=== PATIENT | female | born 1950 ===

== ENCOUNTER 2016-12-06 17:59 | Emergency (ER) | payer MEDICARE, OTHER ==
[2016-12-06 18:00] VITALS: BMI 33.6
[2016-12-06 18:28] VITALS: BP 113/66; PULSE 110; RESP 22; TEMP 98; O2SAT 96
--- NOTE | 2016-12-06 18:59 | ED PDOC ---
Arrival/HPI - General Chief Complaint: Lower Extremity Problem/Injury Time Seen by Provider: 12/06/16 18:42 Historian: Patient - History of Present Illness Narrative History of Present Illness (Text): 12/06/16 18:48 66 year old female presents to the emergency department with bilateral lower extremity swelling that she first noticed this morning. She reports foot pain when she walks. Denies chest pain or shortness of breath. Time/Duration: 24 hours Symptom Onset: Gradual Symptom Course: Unchanged Modifying Factors (Text): None Associated Symptoms (Text): None Past Medical History - Provider Review Nursing Documentation Reviewed: Yes - Past History Past History: Unable to Obtain - Infectious Disease Hx of Infectious Diseases: None - Tetanus Immunization Tetanus Immunization: Unknown - Reproductive Menopause: Yes - Cardiac Hx Cardiac Arrhythmia: No Hx Congestive Heart Failure: No Hx Hypertension: Yes Hx Internal Defibrillator: No Hx Mitral Valve Prolapse: No Hx Pacemaker: No Hx Peripheral Edema: No - Pulmonary Hx Asthma: No Hx Chronic Obstructive Pulmonary Disease (COPD): No Hx Emphysema: No - Neurological HX Cerebrovascular Accident: No Hx Dementia: No Hx Seizures: No - HEENT Hx HEENT Disorder: No - Renal Hx Renal Disorder: No - Endocrine/Metabolic Hx Diabetes Mellitus Type 2: Yes Hx Hyperthyroidism: No Hx Hypothyroidism: No - Hematological/Oncological Hx Anemia: No Hx Cancer: No - Integumentary Hx Dermatological Disorder: No - Musculoskeletal/Rheumatological Hx Falls: No - Gastrointestinal Hx Diverticulitis: Yes - Genitourinary/Gynecological Hx Sexually Transmitted Diseases: No - Psychiatric Hx Depression: Yes Hx Emotional Abuse: No Hx Physical Abuse: No Hx Substance Use: No - Past Surgical History Past Surgical History: No Previous - Surgical History Hx Cardiac Catheterization: No Hx Coronary Stent: No Hx Gastric Bypass Surgery: No - Suicidal Assessment Feels Threatened In Home Enviroment: No Family/Social History - Physician Review Nursing Documentation Reviewed: Yes Family/Social History: Unknown Family HX Smoking Status: Never Smoked Hx Alcohol Use: No Hx Substance Use: No Hx Substance Use Treatment: No Allergies/Home Meds Allergies/Adverse Reactions: Allergies No Known Allergies Allergy (Verified 03/18/16 16:54) Home Medications: Home Meds Medication Instructions Recorded Confirmed Topiramate [Topamax] 200 mg PO HS 01/31/12 04/26/15 Olanzapine [Zyprexa] 20 mg PO HS 11/25/12 04/26/15 Lamotrigine [Lamictal] 200 mg PO HS 05/14/14 04/26/15 Metformin HCl 1,000 mg PO ACD 05/14/14 04/26/15 traZODone [Desyrel] 100 mg PO HS 05/14/14 04/26/15 Review of Systems - Physician Review All systems were reviewed & negative as marked: Yes - Review of Systems Respiratory: absent: SOB Cardiovascular: Edema. absent: Chest Pain Physical Exam Vital Signs Reviewed: Yes Vital Signs Temp Pulse Resp BP Pulse Ox 12/06/16 18:28 98 F 110 H 22 113/66 96 Temperature: Afebrile Blood Pressure: Normal Pulse: Tachycardic Respiratory Rate: Normal Appearance: Positive for: Well-Appearing, Non-Toxic, Comfortable Pain Distress: None Mental Status: Positive for: Alert and Oriented X 3 - Systems Exam Head: Present: Atraumatic, Normocephalic Pupils: Present: PERRL Conjunctiva: Present: Normal Mouth: Present: Moist Mucous Membranes Neck: Present: Normal Range of Motion Respiratory/Chest: Present: Clear to Auscultation, Good Air Exchange. No: Respiratory Distress, Accessory Muscle Use Cardiovascular: Present: Regular Rate and Rhythm. No: Murmurs Abdomen: Present: Normal Bowel Sounds. No: Tenderness, Distention, Peritoneal Signs Back: Present: Normal Inspection Upper Extremity: Present: Normal Inspection. No: Cyanosis, Edema Lower Extremity: Present: Edema (2+ pitting edema bilaterally from foot to below knee), NORMAL PULSES, Neurovascularly Intact, Capillary Refill < 2 s Neurological: Present: GCS=15, Motor Func Grossly Intact, Normal Sensory Function Skin: Present: Warm, Dry, Normal Color. No: Rashes Psychiatric: Present: Alert, Oriented x 3 Medical Decision Making ED Course and Treatment: 12/06/16 20:17 As per technical designer, US is negative for DVT bilaterally. 12/06/16 21:[address] Andrews who can f/u w the pt in his office disc results w pt as well as plan for f/u and rtr. - Lab Interpretations Lab Results: 12/06/16 19:36 12/06/16 19:36 Lab Results 12/06/16 21:33: Urine Color Yellow, Urine Appearance Clear, Urine pH 5.5, Ur Specific [place] 1.020, Urine Protein Negative, Urine Glucose (UA) Negative, Urine Ketones Negative, Urine Blood Negative, Urine Nitrate Negative, Urine Bilirubin Negative, Urine Urobilinogen 0.2, Ur Leukocyte Esterase Trace H, Urine RBC 0 - 2, Urine WBC 1 - 3, Ur Epithelial Cells 0 - 2 12/06/16 19:36: WBC 7.2 D, RBC 3.71, Hgb 11.6 L, Hct 33.6 L, MCV 90.6, MCH 31.3 , MCHC 34.5, RDW 13.5, Plt Count 235, MPV 10.9, Gran % 65.6, Lymph % (Auto) 26.4 , [place] % (Auto) 7.3 H, Eos % (Auto) 0.6 L, Baso % (Auto) 0.1, Gran # 4.74, Lymph # 1.9, [place] # 0.5, Eos # 0.0, Baso # 0.01, Sodium 140, Potassium 3.3 L, Chloride 107, Carbon Dioxide 24, Anion Gap 12, BUN 6 L, Creatinine 0.6, Est GFR ( Amer) > 60, Est GFR (Non-Af Amer) > 60, Random Glucose 86, Calcium 9.1 , Total Bilirubin 0.4, AST 27, ALT 40, Alkaline Phosphatase 85, Troponin I < 0.01, NT-Pro-B Natriuret Pep 41.3, Total Protein 7.3, Albumin 3.9, Globulin 3.3 , Albumin/Globulin Ratio 1.2 - RAD Interpretation Radiology Orders: 12/06/16 18:48 CHEST PORTABLE [RAD] Stat DUPLEX LOWER EXTRM VEIN BILAT [US] Stat - Scribe Statement The provider has reviewed the documentation as recorded by the Michelle Thorpe Provider Scribe Attestation: All medical record entries made by the Michelle were at my direction and personally dictated by me. I have reviewed the chart and agree that the record accurately reflects my personal performance of the history, physical exam, medical decision making, and the department course for this patient. I have also personally directed, reviewed, and agree with the discharge instructions and disposition. Disposition/Present on Arrival - Present on Arrival Any Indicators Present on Arrival: No History of DVT/PE: No History of Uncontrolled Diabetes: No Urinary Catheter: No History of Decub. Ulcer: No - Disposition Have Diagnosis and Disposition been Completed?: Yes Diagnosis: Lower extremity edema Disposition: HOME/ ROUTINE Disposition Time: 21:58 Condition: GOOD Discharge Instructions (ExitCare): Leg Edema (ED) Additional Instructions: Please follow up with your doctor on Friday. Return to the ER for any worsening symptoms or for any other concerns. Referrals: Jamaica Andrews MD [Primary Care Provider] - Follow up with primary
[2016-12-06 19:39] LABS: ADD MANUAL DIFF? NO
[2016-12-06 19:46] LABS: BASO # 0.01 K/mm3 (0.0-2.0); BASO % 0.1 % (0.0-3.0); EOS % 0.6 % (1.5-5.0); GRAN # 4.74 (1.4-6.5); GRAN % 65.6 % (50.0-68.0); HEMATOCRIT 33.6 % (36.0-48.0); LYMPH # 1.9 (1.2-3.4); LYMPH % 26.4 % (22.0-35.0); MEAN CELL VOLUME 90.6 fL (80.0-105.0); MEAN CORPUSCULAR HEMOGLOBIN 31.3 pg (25.0-35.0); MEAN CORPUSCULAR HGB CONC 34.5 g/dl (31.0-37.0); MEAN PLATELET VOLUME 10.9 fl (7.0-11.0); MONO # 0.5 (0.1-0.6); MONO % 7.3 % (1.0-6.0); PLATELET COUNT 235 10^3/uL (120.0-450.0); RED CELL DISTRIBUTION WIDTH 13.5 % (11.5-14.5); WHITE BLOOD COUNT 7.2 10^3/ul (4.5-11.0)
[2016-12-06 19:56] LABS: ALB/GLOB RATIO 1.2 (1.1-1.8); ALKALINE PHOSPHATASE 85 U/L (38-133); ALT/SGPT 40 U/L (7-56); AST/SGOT 27 U/L (15-39); BILIRUBIN,TOTAL 0.4 mg/dL (0.2-1.3); BLOOD UREA NITROGEN 6 mg/dL (7-21); CALCIUM 9.1 mg/dL (8.4-10.5); CARBON DIOXIDE 24 mmol/L (21-33); CHLORIDE 107 mmol/L (98-107); GFR AFRICAN-AMERICAN > 60; GLUCOSE,RANDOM 86 mg/dL (70-110); POTASSIUM 3.3 mmol/L (3.6-5.0); SODIUM 140 mmol/L (132-148); TOTAL PROTEIN 7.3 g/dL (5.8-8.3)
[2016-12-06 20:08] LABS: TROPONIN I < 0.01 ng/mL
[2016-12-06 21:38] LABS: PH,URINE 5.5 (4.7-8.0); URINE BILIRUBIN NEGATIVE (NEGATIVE); URINE BLOOD NEGATIVE (NEGATIVE); URINE GLUCOSE (UA) NEGATIVE (NEGATIVE); URINE KETONE NEGATIVE (NEGATIVE); URINE LEUKOCYTE ESTERASE TRACE Leu/uL (NEGATIVE); URINE PROTEIN NEGATIVE mg/dL (<30 mg/dL); URINE UROBILINOGEN 0.2 E.U./dL (<1 E.U./dL)
[2016-12-06 21:52] LABS: URINE APPEARANCE CLEAR (CLEAR); URINE COLOR YELLOW (YELLOW)
[2016-12-06 21:54] LABS: URINE EPITHELIAL CELLS 0 - 2 /hpf (0-5); URINE RBC 0 - 2 /hpf (0-2)
--- NOTE | 2016-12-07 11:08 | RAD ---
HISTORY: leg edema COMPARISON: No prior. FINDINGS: LUNGS: Minor linear atelectasis left lung base PLEURA: No significant pleural effusion identified, no pneumothorax apparent. CARDIOVASCULAR: Normal. OSSEOUS STRUCTURES: No significant abnormalities. VISUALIZED UPPER ABDOMEN: Normal. OTHER FINDINGS: None. IMPRESSION: Minor linear atelectasis left lung base
--- NOTE | 2016-12-07 12:52 | US ---
HISTORY: Leg pain and swelling. Evaluate for DVT PHYSICIAN(S): Dmitriy Deleon MD. TECHNIQUE: Duplex sonography and color-flow Doppler with graded compression were used to evaluate the deep venous systems of both lower extremities. The exam is limited by body habitus and edema. The tibial veins are not adequately seen. FINDINGS: The visualized deep venous systems of both lower extremities are sonographically normal and compressible. Normal wave forms and augmentation are seen. There is no sonographic evidence for deep venous thrombosis in the visualized segments of both lower extremities. IMPRESSION: No sonographic evidence for deep venous thrombosis in the visualized segments of both lower extremities. Limited study
== END 2016-12-06 22:41 | disposition home or self-care (01) ==
LOC: ED 17:59
DX: R60.0 Localized edema (principal); I10 Essential (primary) hypertension; E11.9 Type 2 diabetes mellitus without complications

== ENCOUNTER 2016-12-09 17:11 | Emergency (ER) | payer MEDICARE, OTHER ==
[2016-12-09 17:12] VITALS: BMI 33.6
[2016-12-09 18:04] VITALS: BP 112/76; PULSE 92; RESP 18; TEMP 98.3; O2SAT 97
[2016-12-09 19:48] LABS: ADD MANUAL DIFF? NO
[2016-12-09 19:52] LABS: BASO # 0.02 K/mm3 (0.0-2.0); BASO % 0.2 % (0.0-3.0); EOS # 0.1 (0.0-0.7); EOS % 0.7 % (1.5-5.0); GRAN # 4.57 (1.4-6.5); GRAN % 53.8 % (50.0-68.0); HEMATOCRIT 35.4 % (36.0-48.0); LYMPH # 3.2 (1.2-3.4); LYMPH % 37.5 % (22.0-35.0); MEAN CELL VOLUME 92.2 fL (80.0-105.0); MEAN CORPUSCULAR HEMOGLOBIN 31.3 pg (25.0-35.0); MEAN CORPUSCULAR HGB CONC 33.9 g/dl (31.0-37.0); MEAN PLATELET VOLUME 10.7 fl (7.0-11.0); MONO # 0.7 (0.1-0.6); MONO % 7.8 % (1.0-6.0); PLATELET COUNT 256 10^3/uL (120.0-450.0); RED CELL DISTRIBUTION WIDTH 13.6 % (11.5-14.5); WHITE BLOOD COUNT 8.5 10^3/ul (4.5-11.0)
[2016-12-09 20:01] LABS: ALB/GLOB RATIO 1.1 (1.1-1.8); ALKALINE PHOSPHATASE 83 U/L (38-133); ALT/SGPT 45 U/L (7-56); AST/SGOT 33 U/L (15-39); BILIRUBIN,TOTAL 0.5 mg/dL (0.2-1.3); BLOOD UREA NITROGEN 19 mg/dL (7-21); CALCIUM 9.6 mg/dL (8.4-10.5); CARBON DIOXIDE 27 mmol/L (21-33); CHLORIDE 103 mmol/L (98-107); GFR AFRICAN-AMERICAN > 60; GLUCOSE,RANDOM 103 mg/dL (70-110); POTASSIUM 3.8 mmol/L (3.6-5.0); SODIUM 140 mmol/L (132-148); TOTAL PROTEIN 8.1 g/dL (5.8-8.3); URIC ACID 2.7 mg/dL (2.5-6.2)
--- NOTE | 2016-12-09 20:35 | ED PDOC ---
Arrival/HPI - General Chief Complaint: Lower Extremity Problem/Injury Time Seen by Provider: 12/09/16 18:49 Historian: Patient - History of Present Illness Narrative History of Present Illness (Text): 12/09/16 20:32 66 year old female w/ PMH of bipolar d/o and DM, presents to the emergency department with continued bilateral lower extremity swelling x 3 days. Patient admits that she was seen and evaluated in this emergency room 3 days ago for similar symptoms, states that blood work was done and she was discharged home, was not given any Rx. States that since her last visit here she has not followed up with her PMD yet. Patient states that the swelling to her lower extremities are causing a tightness sensation, and pain to bilateral ankles. Denies fever, chills, trauma, injury, redness, history of gout, recent travel, chest pain or shortness of breath. PMD Darryl Past Medical History - Provider Review Nursing Documentation Reviewed: Yes - Past History Past History: Unable to Obtain - Infectious Disease Hx of Infectious Diseases: None - Tetanus Immunization Tetanus Immunization: Unknown - Reproductive Menopause: Yes - Cardiac Hx Cardiac Arrhythmia: No Hx Congestive Heart Failure: No Hx Hypertension: Yes Hx Internal Defibrillator: No Hx Mitral Valve Prolapse: No Hx Pacemaker: No Hx Peripheral Edema: No - Pulmonary Hx Asthma: No Hx Chronic Obstructive Pulmonary Disease (COPD): No Hx Emphysema: No - Neurological HX Cerebrovascular Accident: No Hx Dementia: No Hx Seizures: No - HEENT Hx HEENT Disorder: No - Renal Hx Renal Disorder: No - Endocrine/Metabolic Hx Diabetes Mellitus Type 2: Yes Hx Hyperthyroidism: No Hx Hypothyroidism: No - Hematological/Oncological Hx Anemia: No Hx Cancer: No - Integumentary Hx Dermatological Disorder: No - Musculoskeletal/Rheumatological Hx Falls: No - Gastrointestinal Hx Diverticulitis: Yes - Genitourinary/Gynecological Hx Sexually Transmitted Diseases: No - Psychiatric Hx Depression: Yes Hx Emotional Abuse: No Hx Physical Abuse: No Hx Substance Use: No - Past Surgical History Past Surgical History: No Previous - Surgical History Hx Cardiac Catheterization: No Hx Coronary Stent: No Hx Gastric Bypass Surgery: No - Suicidal Assessment Feels Threatened In Home Enviroment: No Family/Social History - Physician Review Nursing Documentation Reviewed: Yes Family/Social History: No Known Family HX Smoking Status: Never Smoked Hx Alcohol Use: No Hx Substance Use: No Hx Substance Use Treatment: No Allergies/Home Meds Allergies/Adverse Reactions: Allergies lithium Allergy (Verified 12/09/16 18:05) RASH Home Medications: Home Meds Medication Instructions Recorded Confirmed Olanzapine [Zyprexa] 20 mg PO HS 11/25/12 12/09/16 Amantadine [Amantadine HCl] 10 mg PO BID 12/09/16 12/09/16 Lisinopril [Zestril] 20 mg PO DAILY 12/09/16 12/09/16 Pioglitazone [Actos] 45 mg PO DAILY 12/09/16 12/09/16 Topiramate [Topamax] 50 mg PO DAILY 12/09/16 12/09/16 amLODIPine [Norvasc] 10 mg PO DAILY 12/09/16 12/09/16 Review of Systems - Review of Systems Constitutional: Normal. absent: Fatigue, Weight Change, Fevers (b/l leg edema) ENT: Normal, Other (chronic R ear infection with malodorous discharge). absent : Hearing Changes, Tinnitus, TMJ Pain, Sore Throat, Rhinorrhea Respiratory: Normal. absent: SOB, Cough Cardiovascular: Normal, Edema. absent: Chest Pain, Palpitations Gastrointestinal: Normal. absent: Abdominal Pain, Stool Changes, Appetite Changes Musculoskeletal: Normal. absent: Arthralgias, Back Pain, Neck Pain Skin: Normal. absent: Rash, Pruritis, Skin Lesions Physical Exam - Physical Exam Narrative Physical Exam (Text): 12/09/16 20:36 GENERAL APPEARANCE: Patient is awake, alert, oriented x 3, in no acute distress. SKIN: Warm, dry; (-) cyanosis; (-) rash. HEAD: (-) scalp swelling, (-) tenderness. EYES: (-) conjunctival pallor, (-) scleral icterus. ENMT: R ear: (+) mild edema with exudate to the canal, TM normal with no erythema. L ear : wnl. Pharynx: (-) erythema; airway patent: (-) stridor; mucous membranes moist. NECK: (-) tenderness, (-) stiffness, (-) lymphadenopathy, (-) thyromegaly. CHEST AND RESPIRATORY: (-) rales, (-) rhonchi, (-) wheezes, (-) pleural friction rub; breath sounds equal bilaterally. HEART AND CARDIOVASCULAR: (-) irregularity; (-) murmur, (-) gallop, (-) pericardial rub. ABDOMEN AND GI: Soft; (-) tenderness, (-) guarding, (-) rebound, (-) palpable masses, (-) CVA tenderness. EXTREMITIES: (+) 2+ pitting edema from below the knees to the feet, with mild tenderness of medial ankles, (-) palpable cord. Distal pulses: 2+. NEURO AND PSYCH: Mental status as above. Cranial nerves grossly intact; strength symmetric. Vital Signs Temp Pulse Resp BP Pulse Ox 12/09/16 18:00 98.3 F 92 H 18 112/76 97 Medical Decision Making ED Course and Treatment: 12/09/16 20:37 66 yo F past medical history of bipolar disorder and diabetes, presents with 3 day history of atraumatic bilateral lower extremity edema. Note patient was seen and evaluated here in this emergency room 3 days ago for similar symptoms, labs and ultrasound Doppler of bilateral lower extremity during that visit or within normal limits. Will repeat labs today and order XRs. Plan: -- Labs -- BNP -- Uric acid level -- XR b/l ankles -- Morphine / Zofran / Toradol -- Reassess and disposition XR bilateral ankles: no fracture, no dislocation, as read by PA Lab results reviewed, BNP and uric acid level are within normal limits. Call placed to Dr. Andrews. Case discussed with Dr. Andrews, he states that the patient was going to Dr. Kilgore, and she is transitioning to his practice however he has not actually seen the patient in his office yet. States that she does have an appointment in the near future scheduled. Based on her labs and diagnostic studies done today patient can be discharged with outpatient follow-up as per Dr. Andrews and he recommends that the patient obtain all of her medical records from Dr. Kilgore's office before coming for her scheduled appointment. Otherwise he recommends no further treatment at this time. Patient states she fully agrees with and understands discharge instructions. States that she agrees with the plan and disposition. Verbalized and repeated discharge instructions and plan. I have given the patient opportunity to ask any additional questions. Follow up with primary care physician in 2 days without fail, advised to bring appropriate medical records during her visit. Return to the emergency room at any time for any new or worsening symptoms. - Lab Interpretations Lab Results: 12/09/16 19:41 12/09/16 19:41 Lab Results 12/09/16 19:41: WBC 8.5, RBC 3.84, Hgb 12.0, Hct 35.4 L, MCV 92.2, MCH 31.3, MCHC 33.9, RDW 13.6, Plt Count 256, MPV 10.7, Gran % 53.8, Lymph % (Auto) 37.5 H , [place] % (Auto) 7.8 H, Eos % (Auto) 0.7 L, Baso % (Auto) 0.2, Gran # 4.57, Lymph # 3.2, [place] # 0.7 H, Eos # 0.1, Baso # 0.02, Sodium 140, Potassium 3.8, Chloride 103, Carbon Dioxide 27, Anion Gap 14, BUN 19, Creatinine 0.7, Est GFR ( Amer) > 60, Est GFR (Non-Af Amer) > 60, Random Glucose 103, Uric Acid 2.7, Calcium 9.6, Total Bilirubin 0.5, AST 33, ALT 45, Alkaline Phosphatase 83, NT-Pro-B Natriuret Pep 33.3, Total Protein 8.1, Albumin 4.3, Globulin 3.8, Albumin/Globulin Ratio 1.1 - RAD Interpretation Radiology Orders: 12/09/16 19:06 ANKLE LEFT 3 VIEWS ROUTINE [RAD] Stat ANKLE RIGHT 3 VIEWS ROUTINE [RAD] Stat - Medication Orders Current Medication Orders: Discontinued Medications Home Med (*Refrigerator Open) Confirm Administered Dose 1 unit XX .STK-MED ONE Stop: 12/09/16 18:47 - 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 Disposition/Present on Arrival - Present on Arrival Any Indicators Present on Arrival: No History of DVT/PE: No History of Uncontrolled Diabetes: No Urinary Catheter: No History of Decub. Ulcer: No History Surgical Site Infection Following: None - Disposition Have Diagnosis and Disposition been Completed?: Yes Diagnosis: Lower extremity edema, Otitis externa Disposition: HOME/ ROUTINE Disposition Time: 20:30 Patient Plan: Discharge Condition: STABLE Discharge Instructions (ExitCare): Leg Edema (ED), Otitis Externa (ED) Print Language: ESTONIAN Additional Instructions: Thank you for letting us take care of you today. You were treated for b/l leg edema, otitis externa R ear. The emergency medical care you received today was directed at your acute symptoms. Elevate your legs, take medication as prescribed for your ear infection. Return to the Emergency Department if your symptoms worsen, do not improve, or if you have any other problems. Please contact your doctor in 2 days for re-evaluation and follow up, bring all of your appropriate medical records with you from your old PMD. Bring any paperwork you were given at discharge with you along with any medications you are taking to your follow up visit. Our treatment cannot replace ongoing medical care by a primary care provider (PCP) outside of the emergency department. Thank you for allowing the [facility] team to be part of your care today.
--- NOTE | 2016-12-10 09:27 | RAD ---
PROCEDURE: Right Ankle Radiographs. HISTORY: pain, swelling COMPARISON: None FINDINGS: BONES: There is a well corticated bony fragment adjacent to the medial malleolus consistent with an old injury. JOINTS: Normal. No osteoarthritis. Ankle mortise maintained. Talar dome intact SOFT TISSUES: Normal. OTHER FINDINGS: None. IMPRESSION: No acute finding
--- NOTE | 2016-12-10 09:28 | RAD ---
PROCEDURE: Left Ankle Radiographs. HISTORY: pain, swelling COMPARISON: None FINDINGS: BONES: Normal. No fracture. JOINTS: Normal. No osteoarthritis. Ankle mortise maintained. Talar dome intact SOFT TISSUES: Normal. OTHER FINDINGS: None. IMPRESSION: Normal left ankle radiographs.
== END 2016-12-09 21:11 | disposition home or self-care (01) ==
LOC: ED 17:11
DX: R60.0 Localized edema (principal); H60.91 Unspecified otitis externa, right ear

== ENCOUNTER 2017-01-17 16:33 | Emergency (ER) | payer MEDICARE, OTHER ==
[2017-01-17 16:40] VITALS: BMI 34.2
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
[2017-01-17 19:10] LABS: ADD MANUAL DIFF? NO
[2017-01-17 19:15] LABS: BASO # 0.01 K/mm3 (0.0-2.0); BASO % 0.2 % (0.0-3.0); EOS % 0.3 % (1.5-5.0); GRAN # 3.74 (1.4-6.5); GRAN % 61.3 % (50.0-68.0); HEMATOCRIT 34.7 % (36.0-48.0); LYMPH % 32.5 % (22.0-35.0); MEAN CELL VOLUME 90.8 fL (80.0-105.0); MEAN CORPUSCULAR HEMOGLOBIN 31.7 pg (25.0-35.0); MEAN CORPUSCULAR HGB CONC 34.9 g/dl (31.0-37.0); MEAN PLATELET VOLUME 10.4 fl (7.0-11.0); MONO # 0.4 (0.1-0.6); MONO % 5.7 % (1.0-6.0); PLATELET COUNT 281 10^3/uL (120.0-450.0); RED CELL DISTRIBUTION WIDTH 13.6 % (11.5-14.5); WHITE BLOOD COUNT 6.1 10^3/ul (4.5-11.0)
[2017-01-17 19:29] LABS: ALB/GLOB RATIO 1.5 (1.1-1.8); ALKALINE PHOSPHATASE 95 U/L (38-133); ALT/SGPT 33 U/L (7-56); AST/SGOT 27 U/L (15-39); BILIRUBIN,TOTAL 0.3 mg/dL (0.2-1.3); BLOOD UREA NITROGEN 17 mg/dL (7-21); CALCIUM 9.3 mg/dL (8.4-10.5); CARBON DIOXIDE 26 mmol/L (21-33); CHLORIDE 102 mmol/L (98-107); GFR AFRICAN-AMERICAN > 60; GLUCOSE,RANDOM 146 mg/dL (70-110); POTASSIUM 3.6 mmol/L (3.6-5.0); SODIUM 138 mmol/L (132-148); TOTAL PROTEIN 7.6 g/dL (5.8-8.3)
[2017-01-17 23:53] LABS: URINE BILIRUBIN NEGATIVE (NEGATIVE); URINE BLOOD NEGATIVE (NEGATIVE); URINE GLUCOSE (UA) NEGATIVE (NEGATIVE); URINE KETONE NEGATIVE (NEGATIVE); URINE LEUKOCYTE ESTERASE NEGATIVE Leu/uL (NEGATIVE); URINE PROTEIN NEGATIVE mg/dL (<30 mg/dL); URINE UROBILINOGEN 0.2 E.U./dL (<1 E.U./dL)
[2017-01-17 23:55] LABS: URINE APPEARANCE CLEAR (CLEAR); URINE COLOR YELLOW (YELLOW)
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
--- NOTE | 2017-01-18 10:09 | RAD ---
HISTORY: psych eval COMPARISON: 12/06/2016 FINDINGS: LUNGS: No active pulmonary disease. PLEURA: No significant pleural effusion identified, no pneumothorax apparent. CARDIOVASCULAR: Normal. OSSEOUS STRUCTURES: No significant abnormalities. VISUALIZED UPPER ABDOMEN: Normal. OTHER FINDINGS: None. IMPRESSION: No active disease.
[2017-01-18 17:53] VITALS: RESP 16
[2017-01-18 20:46] VITALS: TEMP 98.2
--- NOTE | 2017-01-18 21:31 | ED PDOC ---
Physical Exam Vital Signs Reviewed: Yes Vital Signs Temp Pulse Resp BP Pulse Ox 01/18/17 21:47 96 H 111/71 98 01/18/17 19:30 98.2 F 88 16 144/70 99 01/18/17 17:52 98 F 92 H 16 146/82 96 01/18/17 13:03 88 18 146/89 98 01/18/17 07:00 98 F 86 16 138/75 98 01/17/17 19:30 97.9 F 99 H 16 133/77 99 Temperature: Afebrile Blood Pressure: Normal Pulse: Regular Respiratory Rate: Normal Appearance: Positive for: Well-Appearing, Non-Toxic, Comfortable Pain Distress: None Mental Status: Positive for: Alert and Oriented X 3 Finger Stick Blood Glucose: 112 Medical Decision Making ED Course and Treatment: 01/18/17 19:00 Case endorsed to me by Dr. Moran, pending [facility] [place]. 01/18/17 21:41 As per RN, pt received a bed at [facility]. 01/18/17 22:20 EMS present at bedside. Pt transferred to [facility] for bipolar disorder. - Lab Interpretations Lab Results: 01/17/17 19:04 01/17/17 19:04 Lab Results 01/17/17 23:35: Urine Opiates Screen Negative, Urine Methadone Screen Negative, Ur Barbiturates Screen Negative, Ur Phencyclidine Scrn Negative, Ur Amphetamines Screen Negative, U Benzodiazepines Scrn Negative, U Oth Cocaine Metabols Negative, U Cannabinoids Screen Negative 01/17/17 23:35: Urine Color Yellow, Urine Appearance Clear, Urine pH 6.0, Ur Specific [place] 1.015, Urine Protein Negative, Urine Glucose (UA) Negative, Urine Ketones Negative, Urine Blood Negative, Urine Nitrate Negative, Urine Bilirubin Negative, Urine Urobilinogen 0.2, Ur Leukocyte Esterase Negative 01/17/17 19:04: Alcohol, Quantitative < 10 01/17/17 19:04: Salicylates < 1 L, Acetaminophen < 10.0 L 01/17/17 19:04: Sodium 138, Potassium 3.6, Chloride 102, Carbon Dioxide 26, Anion Gap 14, BUN 17, Creatinine 0.7, Est GFR ( Amer) > 60, Est GFR (Non- Af Amer) > 60, Random Glucose 146 H, Calcium 9.3, Total Bilirubin 0.3, AST 27, ALT 33, Alkaline Phosphatase 95, Total Protein 7.6, Albumin 4.5, Globulin 3.0, Albumin/Globulin Ratio 1.5 01/17/17 19:04: WBC 6.1 D, RBC 3.82, Hgb 12.1, Hct 34.7 L, MCV 90.8, MCH 31.7, MCHC 34.9, RDW 13.6, Plt Count 281, MPV 10.4, Gran % 61.3, Lymph % (Auto) 32.5, [place] % (Auto) 5.7, Eos % (Auto) 0.3 L, Baso % (Auto) 0.2, Gran # 3.74, Lymph # 2.0, [place] # 0.4, Eos # 0.0, Baso # 0.01 - RAD Interpretation Radiology Orders: 01/17/17 16:57 CHEST PORTABLE [RAD] Stat - Medication Orders Current Medication Orders: Olanzapine (Zyprexa) 2.5 mg PO [facility] PRN Reason: Protocol Last Admin: 01/18/17 20:47 Dose: 2.5 mg Trazodone HCl (Desyrel) 50 mg PO HS [facility] Last Admin: 01/18/17 20:48 Dose: 50 mg Disposition/Present on Arrival - Present on Arrival Any Indicators Present on Arrival: No History of DVT/PE: No History of Uncontrolled Diabetes: No Urinary Catheter: No History of Decub. Ulcer: No History Surgical Site Infection Following: None - Disposition Have Diagnosis and Disposition been Completed?: Yes Diagnosis: Psychiatric disorder Disposition: Transfer [facility] Disposition Time: 22:35 Patient Problems: Current Active Problems Problem Status Onset Psychiatric disorder Acute Condition: GOOD Referrals: Janet Pat MD [Primary Care Provider] - Follow up with primary
[2017-01-18 21:47] VITALS: BP 111/71; PULSE 96; O2SAT 98
--- NOTE | 2017-01-19 12:16 | CARD ---
APPROVED REPORT EKG Measurement Heart [id number] <Conclusion> Poor data quality, interpretation may be adversely affected Sinus tachycardia Incomplete right bundle branch block Possible Anterolateral infarct, age undetermined Abnormal ECG
== END 2017-01-18 22:38 | disposition short-term general hospital (02) ==
LOC: ED 16:33
DX: F29 Unspecified psychosis not due to a substance or known physiological condition (principal); I10 Essential (primary) hypertension; E11.9 Type 2 diabetes mellitus without complications; F32.9 Major depressive disorder, single episode, unspecified
CPT/HCPCS: 71010; 80053; 81003; 82948; 85025; 93005; 99285; G0480

== ENCOUNTER 2017-04-09 13:09 | Emergency (ER) | payer MEDICARE, OTHER ==
[2017-04-09 13:16] VITALS: BP 110/76; PULSE 93; TEMP 98; BMI 32.8
--- NOTE | 2017-04-09 13:33 | ED PDOC ---
Arrival/HPI - History of Present Illness Time/Duration: 24 hours Symptom Onset: Gradual Symptom Course: Unchanged Context: Home <Arlen Head - Last Filed: 04/09/17 13:42> - General Historian: Patient <Nicole Hilton - Last Filed: 04/09/17 14:05> - General Chief Complaint: Medical Clearance Time Seen by Provider: 04/09/17 13:14 - History of Present Illness Narrative History of Present Illness (Text): 04/09/17 13:29 66 year old female with past medical history of DM and bipolar disorder presents for increased hand tremors since yesterday. Patient states that yesterday she was writing and felt her hand was shaking more than normal to the point that her handwriting was skewed. Today patient noticed a new fine line on the side of her mouth that she states was not present before. Patient states that she has a baseline tremor that is always present that she attributes to previous psych medication use. Patient denies having any upper or lower extremity weakness, numbness or tingling. Patient denies having any facial droop, speech changes, difficulty ambulating or VAZQUEZ. Denies SI/HI (Arlen Head) Past Medical History - Provider Review Nursing Documentation Reviewed: Yes - Travel History Have you recently traveled outside [place] w/in the past 3 mons?: No - Past History Past History: Unable to Obtain - Infectious Disease Hx of Infectious Diseases: None - Tetanus Immunization Tetanus Immunization: Unknown - Cardiac Hx Cardiac Disorders: Yes Hx Hypertension: Yes - Pulmonary Hx Asthma: No Hx Chronic Obstructive Pulmonary Disease (COPD): No Hx Emphysema: No - Neurological HX Cerebrovascular Accident: No Hx Dementia: No Hx Seizures: No - HEENT Hx HEENT Disorder: No - Renal Hx Renal Disorder: No - Endocrine/Metabolic Hx Endocrine Disorders: Yes Hx Diabetes Mellitus Type 2: Yes - Hematological/Oncological Hx Anemia: No Hx Cancer: No - Integumentary Hx Dermatological Disorder: No - Musculoskeletal/Rheumatological Hx Falls: No - Gastrointestinal Hx Gastrointestinal Disorders: Yes Hx Diverticulitis: Yes - Genitourinary/Gynecological Hx Genitourinary Disorders: No Hx Sexually Transmitted Diseases: No - Psychiatric Hx Psychophysiologic Disorder: Yes Hx Anxiety: Yes Hx Bipolar Disorder: Yes Hx Depression: Yes Hx Substance Use: No - Past Surgical History Past Surgical History: No Previous - Surgical History Hx Cardiac Catheterization: No Hx Coronary Stent: No Hx Gastric Bypass Surgery: No - Anesthesia Hx Anesthesia: No - Suicidal Assessment Feels Threatened In Home Enviroment: No <Arlen Head - Last Filed: 04/09/17 13:42> Family/Social History - Physician Review Nursing Documentation Reviewed: Yes Family/Social History: Unknown Family HX Smoking Status: Never Smoked Hx Alcohol Use: No Hx Substance Use: No Hx Substance Use Treatment: No <Amn Sonidoa - Last Filed: 04/09/17 13:42> Allergies/Home Meds <SonidoArlen - Last Filed: 04/09/17 13:42> <TawannaleonelNicole Garza - Last Filed: 04/09/17 14:05> Allergies/Adverse Reactions: Allergies lithium Allergy (Verified 04/09/17 13:16) RASH Home Medications: Home Meds Medication Instructions Recorded Confirmed Olanzapine [Zyprexa] 20 mg PO HS 11/25/12 04/09/17 Topiramate [Topamax] 50 mg PO DAILY 12/09/16 04/09/17 Lisinopril [Zestril] 20 mg PO DAILY 01/17/17 04/09/17 Metformin HCl [Glucophage] 1,000 mg PO BID 01/17/17 04/09/17 traZODone [Desyrel] 50 mg PO DAILY 01/17/17 04/09/17 ALPRAZolam [Xanax] 0 mg PO TID 04/09/17 04/09/17 Review of Systems - Review of Systems Constitutional: Normal. absent: Fatigue, Fevers Eyes: Normal. absent: Vision Changes, Photophobia, Eye Pain ENT: Normal. absent: Hearing Changes, Sore Throat, Rhinorrhea Respiratory: Normal. absent: SOB, Cough, Wheezing Cardiovascular: Normal. absent: Chest Pain, Edema, Calf Pain Gastrointestinal: Normal. absent: Abdominal Pain, Constipation, Diarrhea, Nausea, Vomiting Genitourinary Female: Normal. absent: Dysuria, Frequency, Hematuria Musculoskeletal: Normal. absent: Arthralgias, Back Pain, Neck Pain Skin: Normal. absent: Rash, Pruritis, Skin Lesions Neurological: Normal. absent: Headache, Dizziness, Focal Weakness, Gait Changes , Speech Changes, Facial Droop, Disequilibrium, Seizure, Other (no facial droop) Endocrine: Normal. absent: Diaphoresis, Polyuria Hemo/Lymphatic: Normal. absent: Adenopathy, Easy Bleeding Psychiatric: Normal. absent: Anxiety, Depression <Arlen Head - Last Filed: 04/09/17 13:42> Physical Exam Vital Signs Reviewed: Yes Temperature: Afebrile Blood Pressure: Normal Pulse: Regular Respiratory Rate: Normal Appearance: Positive for: Well-Appearing, Non-Toxic, Comfortable Pain Distress: None Mental Status: Positive for: Alert and Oriented X 3 - Systems Exam Head: Present: Atraumatic, Normocephalic Pupils: Present: PERRL Extroacular Muscles: Present: EOMI Conjunctiva: Present: Normal Mouth: Present: Moist Mucous Membranes Pharnyx: Present: Normal. No: ERYTHEMA, EXUDATE, TONSILS ENLARGED Nose (External): Present: Atraumatic Neck: Present: Normal Range of Motion. No: Meningeal Signs, MIDLINE TENDERNESS Respiratory/Chest: Present: Clear to Auscultation, Good Air Exchange. No: Respiratory Distress, Accessory Muscle Use, Wheezes, Rales, Rhonchi Cardiovascular: Present: Regular Rate and Rhythm, Normal S1, S2. No: Murmurs, Rub, Gallop, Muffled Abdomen: Present: Normal Bowel Sounds. No: Tenderness, Distention, Peritoneal Signs, Rebound, Guarding Upper Extremity: Present: Normal Inspection, NORMAL PULSES, Neurovascularly Intact, Norm 2-Pt Discrimination. No: Edema Lower Extremity: Present: Normal Inspection, Neurovascularly Intact. No: Edema , CALF TENDERNESS Neurological: Present: GCS=15, CN II-XII Intact, Speech Normal, Motor Func Grossly Intact, Normal Sensory Function, Normal Cerebellar Funct (patient is ambulating without difficulty ), Gait Normal, Memory Normal, Normal 2Pt Descrimination, Other (no facial droop noted, no tremor notice on upper extremities, normal writing ) Skin: Present: Warm, Dry, Normal Color. No: Rashes Psychiatric: Present: Alert, Oriented x 3, Normal Insight, Normal Concentration , Normal Affect, Normal Mood. No: Anxious, Agitated <Arlen Head - Last Filed: 04/09/17 13:42> Medical Decision Making <Arlen Head - Last Filed: 04/09/17 13:42> <Nicole Hilton - Last Filed: 04/09/17 14:05> ED Course and Treatment: 04/09/17 13:47 66 year old female presents for difficulty writing due to tremor that she noticed. Patient has normal neurological examination including fine motor skill with writing. Patient is ambulating without difficulty and has no baseline tremor. Patient has follow up appointment with psychiatrist. (Arlen Head) 04/09/17 13:57 In agreement with resident note, which includes further HPI details. Patient was seen and evaluated with resident, came up with plan and treatment together. Patient reports new fine line to R side of mouth. She reports that she was at her day program this morning when she mentioned it and they sent her to the emergency department for evaluation. She reports "Im fine, I need to speak up, " and reports that she should have told the day program that she did not need to go to the ER. She also reports a baseline hand tremor and reports that sometimes it affects her hand writing, but now her writing is fine. She reports that this is a chronic problem due to her psych medications. She reports PMD follow-up with Dr. Thurman and follow-up with her psychiatrist. She reports that her face has no new droop or asymmetry. She denies changes in voice, slurred speech, weakness, numbness, gait disturbance, headache, chest pain. Her physical exam is normal and she is neurologically intact. She is ambulating around the emergency department without issue and was able to write normally in Ed in cursive for this MD. She reports that she feels ready to go home and does not want further evaluation. 04/09/17 14:00 (Nicole Hilton) <Arlen Head - Last Filed: 04/09/17 13:42> - PA / FLOOR SUPERVISOR / Resident Statement MD/ has reviewed & agrees with the documentation as recorded. MD/DO has examined the patient and agrees with the treatment plan. - Scribe Statement The provider has reviewed the documentation as recorded by the Scribe <Nicole Hilton - Last Filed: 04/09/17 14:05> - Scribe Statement 04/09/2017 Екатерина Garcia Provider Scribe Attestation: All medical record entries made by the Scribe were at my direction and personally dictated by me. I have reviewed the chart and agree that the record accurately reflects my personal performance of the history, physical exam, medical decision making, and the department course for this patient. I have also personally directed, reviewed, and agree with the discharge instructions and disposition. (Nicole Hilton) Disposition/Present on Arrival - Present on Arrival Any Indicators Present on Arrival: No History of DVT/PE: No History of Uncontrolled Diabetes: No Urinary Catheter: No History of Decub. Ulcer: No History Surgical Site Infection Following: None - Disposition Have Diagnosis and Disposition been Completed?: Yes Disposition Time: 13:49 Patient Plan: Discharge <Arlen Head - Last Filed: 04/09/17 13:42> <Nicole Hilton - Last Filed: 04/09/17 14:05> - Disposition Diagnosis: Tremor Disposition: HOME/ ROUTINE Patient Problems: Current Active Problems Problem Status Onset Tremor Acute Condition: GOOD Additional Instructions: Janki Calzada, thank you for letting us take care of you today. Your provider was Dr. Arlen Head. You were treated for tremor. The emergency medical care you received today was directed at your acute symptoms. If you were prescribed any medication, please fill it and take as directed. It may take several days for your symptoms to resolve. Return to the Emergency Department if your symptoms worsen, do not improve, or if you have any other problems. Please contact your doctor or call one of the physicians/clinics you have been referred to that are listed on the Patient Visit Information form that is included in your discharge packet. Bring any paperwork you were given at discharge with you along with any medications you are taking to your follow up visit. Our treatment cannot replace ongoing medical care by a primary care provider (PCP) outside of the emergency department. Thank you for allowing the [facility] team to be part of your care today. If you had an X-Ray or CT scan: A Radiologist will review the ED reading if any change in treatment is needed we will contact you. If you had a blood, urine, or wound culture: It will take several days for the results, if any change in treatment is needed we will contact you. If you had an STI test: It will take 48 hours for the results. Please call after 1 week if you have not heard back. Referrals: Ida Thurman DO [Primary Care Provider] - Follow up with primary Forms: [email or web address] ([place])
[2017-04-09 14:14] VITALS: RESP 16; O2SAT 98
== END 2017-04-09 14:14 | disposition home or self-care (01) ==
LOC: ED 13:09
DX: R25.1 Tremor, unspecified (principal); I10 Essential (primary) hypertension; E11.9 Type 2 diabetes mellitus without complications

== ENCOUNTER 2018-03-05 05:08 | Emergency (ER) | payer MEDICARE ==
[2018-03-05 05:16] VITALS: BMI 32.1
--- NOTE | 2018-03-05 05:41 | ED PDOC ---
Arrival/HPI - General Chief Complaint: Trauma Time Seen by Provider: 03/05/18 05:34 Historian: Patient - History of Present Illness Narrative History of Present Illness (Text): 03/05/18 05:38 Janki Calzada is a 67 year old female, whose past medical history includes bipolar disorder, hypertension, and diabetes, who presents to the Emergency department brought in by EMS status post mechanical fall prior to arrival. Patient states she tripped and fell while walking. Patient sustained an abrasion to the right side of her forehead and reports a slight headache. Patient also denies any loss of consciousness, dizziness, focal deficits, vision changes, nausea, vomiting, or any other complaints. Symptom Onset: Gradual Symptom Course: Unchanged Activities at Onset: Light Context: Home, Tripped Past Medical History - Provider Review Nursing Documentation Reviewed: Yes - Past History Past History: Unable to Obtain - Infectious Disease Hx of Infectious Diseases: None - Tetanus Immunization Tetanus Immunization: Unknown - Cardiac Hx Cardiac Disorders: Yes Hx Hypertension: Yes - Pulmonary Hx Asthma: No Hx Chronic Obstructive Pulmonary Disease (COPD): No Hx Emphysema: No - Neurological HX Cerebrovascular Accident: No Hx Dementia: No Hx Seizures: No - HEENT Hx HEENT Disorder: No - Renal Hx Renal Disorder: No - Endocrine/Metabolic Hx Endocrine Disorders: Yes Hx Diabetes Mellitus Type 2: Yes - Hematological/Oncological Hx Anemia: No Hx Cancer: No - Integumentary Hx Dermatological Disorder: No - Musculoskeletal/Rheumatological Hx Falls: No - Gastrointestinal Hx Gastrointestinal Disorders: Yes Hx Diverticulitis: Yes - Genitourinary/Gynecological Hx Genitourinary Disorders: No Hx Sexually Transmitted Diseases: No - Psychiatric Hx Psychophysiologic Disorder: Yes Hx Anxiety: Yes Hx Bipolar Disorder: Yes Hx Depression: Yes Hx Substance Use: No - Past Surgical History Past Surgical History: No Previous - Surgical History Hx Cardiac Catheterization: No Hx Coronary Stent: No Hx Gastric Bypass Surgery: No - Anesthesia Hx Anesthesia: No - Suicidal Assessment Feels Threatened In Home Enviroment: No Family/Social History - Physician Review Nursing Documentation Reviewed: Yes Family/Social History: Unknown Family HX Smoking Status: Never Smoked Hx Alcohol Use: No Hx Substance Use: No Hx Substance Use Treatment: No Allergies/Home Meds Allergies/Adverse Reactions: Allergies lithium Allergy (Verified 03/05/18 05:19) RASH Home Medications: Home Meds Medication Instructions Recorded Confirmed Olanzapine [Zyprexa] 20 mg PO HS 11/25/12 03/05/18 Topiramate [Topamax] 50 mg PO DAILY 12/09/16 03/05/18 Lisinopril [Zestril] 20 mg PO DAILY 01/17/17 03/05/18 Metformin HCl [Glucophage] 1,000 mg PO BID 01/17/17 03/05/18 traZODone [Desyrel] 50 mg PO DAILY 01/17/17 03/05/18 ALPRAZolam [Xanax] 0 mg PO TID 04/09/17 03/05/18 Review of Systems - Physician Review All systems were reviewed & negative as marked: Yes - Review of Systems Constitutional: Normal. absent: Fevers Eyes: Normal ENT: Normal Respiratory: Normal. absent: SOB, Cough Cardiovascular: Normal. absent: Chest Pain Gastrointestinal: Normal. absent: Abdominal Pain, Diarrhea, Nausea, Vomiting Genitourinary Female: Normal. absent: Dysuria, Frequency, Hematuria, Urine Output Changes Musculoskeletal: Normal. absent: Back Pain, Neck Pain Skin: Other (+abrasion) Neurological: Normal. absent: Headache, Dizziness Endocrine: Normal Hemo/Lymphatic: Normal Psychiatric: Normal Physical Exam Vital Signs Reviewed: Yes Vital Signs Pulse Resp BP Pulse Ox 03/05/18 05:15 92 H 18 128/90 99 Temperature: Afebrile Blood Pressure: Normal Pulse: Regular Respiratory Rate: Normal Appearance: Positive for: Well-Appearing, Non-Toxic, Comfortable Pain Distress: None Mental Status: Positive for: Alert and Oriented X 3 - Systems Exam Head: Present: Normocephalic, Contusion (Contusion/swelling to right forehead), Abrasion (Abrasion to right forehead) Pupils: Present: PERRL Extroacular Muscles: Present: EOMI Conjunctiva: Present: Normal Ears: Present: Normal, NORMAL TM, Normal Canal. No: Erythema, TM Bulging, Fluid , TM Perf Mouth: Present: Moist Mucous Membranes Pharnyx: Present: Normal. No: ERYTHEMA, EXUDATE, TONSILS ENLARGED, Peritonsilar Swelling, Uvular Deviation, Muffled/Hoarse Voice, Strider, Soft Palate/Uvular Edema Nose (External): Present: Atraumatic. No: Abrasion Nose (Internal): Present: Normal Inspection Neck: Present: Normal Range of Motion. No: Meningeal Signs, MIDLINE TENDERNESS , Paraspinal Tenderness Respiratory/Chest: Present: Clear to Auscultation, Good Air Exchange. No: Respiratory Distress, Accessory Muscle Use Cardiovascular: Present: Regular Rate and Rhythm, Normal S1, S2. No: Murmurs Abdomen: No: Tenderness, Distention, Peritoneal Signs Back: Present: Normal Inspection. No: CVA Tenderness, Midline Tenderness, Paraspinal Tenderness Upper Extremity: Present: Normal Inspection. No: Cyanosis, Edema Lower Extremity: Present: NORMAL PULSES, Normal ROM, Neurovascularly Intact, Capillary Refill < 2 s, Other (Chronic venous stasis changes). No: Edema, Tenderness, Swelling, Deformity, Temperature Abnormalties Neurological: Present: GCS=15, CN II-XII Intact, Speech Normal, Motor Func Grossly Intact, Normal Sensory Function, Normal Cerebellar Funct Skin: Present: Warm, Dry, Normal Color. No: Rashes Psychiatric: Present: Alert, Oriented x 3, Normal Insight, Normal Concentration Medical Decision Making ED Course and Treatment: 03/05/18 05:38 Impression: 67 year old female brought in status post mechanical fall. Plan: -- CT Head w/o contrast -- Reassess and disposition Prior Visits: Notes and results from previous visits were reviewed. On 04/09/2017, pt was seen in the Emergency department for increased hand tremors. Pt was d/c home. Progress Notes: 03/05/18 06:15 Wound irrigated with normal saline, covered in Bacitracin, and dressed with gauze. Pt tolerated well without complications. - RAD Interpretation Radiology Orders: 03/05/18 05:40 HEAD W/O CONTRAST [CT] Stat Advertising Agency Manager: Radiologist - Scribe Statement The provider has reviewed the documentation as recorded by the Scribricky Vu All medical record entries made by the Scribe were at my direction and personally dictated by me. I have reviewed the chart and agree that the record accurately reflects my personal performance of the history, physical exam, medical decision making, and the department course for this patient. I have also personally directed, reviewed, and agree with the discharge instructions and disposition. Disposition/Present on Arrival - Present on Arrival Any Indicators Present on Arrival: No History of DVT/PE: No History of Uncontrolled Diabetes: No Urinary Catheter: No History of Decub. Ulcer: No History Surgical Site Infection Following: None - Disposition Have Diagnosis and Disposition been Completed?: Yes Diagnosis: Forehead contusion, Abrasion head Disposition: HOME/ ROUTINE Disposition Time: 06:47 Patient Plan: Discharge Condition: GOOD Discharge Instructions (ExitCare): Contusion (DC), Minor Head Injury (DC) Additional Instructions: Keep area clean/apply bacitracin daily /clean dressing(bandaid ) daily/follow up with your doctor as needed Prescriptions: Bacitracin Ointment [Bacitracin] 30 gm TOP BID #30 tube Referrals: Ida Thurman DO [Primary Care Provider] - Follow up with primary Forms: [employer] (Amharic)
--- NOTE | 2018-03-05 06:41 | CT ---
EXAM: CT Head Without Intravenous Contrast CLINICAL HISTORY: 67 years old, female; Injury or trauma; Fall; Initial encounter; Abrasion; Head, generalized TECHNIQUE: Axial computed tomography images of the head/brain without intravenous contrast. All CT scans at this facility use at least one of these dose optimization techniques: automated exposure control; mA and/or kV adjustment per patient size (includes targeted exams where dose is matched to clinical indication); or iterative reconstruction. Coronal and sagittal reformatted images were created and reviewed. COMPARISON: CT - HEAD W/O CONTRAST 2016-03-18 22:41 FINDINGS: Brain: Unremarkable. No hemorrhage. No significant white matter disease. No edema. Ventricles: Unremarkable. No ventriculomegaly. Bones/joints: See below. Soft tissues: There is right frontal scalp swelling. There is no underlying fracture. Sinuses: Unremarkable as visualized. No acute sinusitis. Mastoid air cells: There is moderate right mastoid disease. There is fluid/debris within the right middle ear. IMPRESSION: There is moderate right mastoid disease. There is fluid/debris within the right middle ear.
[2018-03-05 07:08] VITALS: BP 132/78; PULSE 77; RESP 17; TEMP 98.2; O2SAT 98
== END 2018-03-05 07:16 | disposition home or self-care (01) ==
LOC: ED 05:08
DX: S00.83XA Contusion of other part of head, initial encounter (principal); W01.0XXA Fall on same level from slipping, tripping and stumbling without subsequent striking against object, initial encounter; Y93.01 Activity, walking, marching and hiking; Y92.89 Other specified places as the place of occurrence of the external cause

== ENCOUNTER 2018-03-09 15:11 | Emergency (ER) | payer MEDICARE ==
[2018-03-09 15:12] VITALS: BMI 32.1
[2018-03-09 15:16] VITALS: RESP 18; O2SAT 96
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
[2018-03-09 19:19] VITALS: BP 137/89; PULSE 75; TEMP 98
== END 2018-03-09 19:11 | disposition home or self-care (01) ==
LOC: ED 15:11
DX: I87.8 Other specified disorders of veins (principal); Z00.8 Encounter for other general examination

== ENCOUNTER 2018-03-15 03:41 | Inpatient (IN) | payer MEDICARE, OTHER ==
[2018-03-15] MEDS ORDERED: Vancomycin 1gm in NS 250ml 1 GM/250 ML BAG IVPB STA (04:32)
[2018-03-15] MEDS ORDERED: Piperacillin/Tazobact 3.375 gm 100 ML IVPB STA (04:32)
[2018-03-15] MEDS ORDERED: Sodium Chloride 0.9% 1,000 ML IV STA (04:32)
--- NOTE | 2018-03-15 04:35 | ED PDOC ---
Arrival/HPI - General Chief Complaint: Psychiatric Evaluation Time Seen by Provider: 03/15/18 04:28 Historian: EMS ((sister)) EM Caveat: Psychotic - History of Present Illness Narrative History of Present Illness (Text): 03/15/18 04:31 67 year old female, whose past medical history includes bipolar disorder, hypertension, and diabetes, presents to the emergency department complaining of pins and needles to her legs bilaterally. As per EMS, patient called her sister complaining of leg pain and her sister called 911. They do not live together and has not seen each other for a while. Sister suspects patient stopped taking her psych medication for 1 year and sent here her primarily for psych reasons. She did not see her legs so she did not know she has cellulitis on her legs. Patient is unable to give history whatsoever and keeps repeating "Uffff my legs have pins and needles". HPI and ROS limited due to patient's current psychotic state. Past Medical History - Provider Review Nursing Documentation Reviewed: Yes - Past History Past History: Unable to Obtain - Infectious Disease Hx of Infectious Diseases: None - Tetanus Immunization Tetanus Immunization: Unknown - Cardiac Hx Cardiac Disorders: Yes Hx Hypertension: Yes - Pulmonary Hx Respiratory Disorders: No - Neurological Hx Neurological Disorder: No - HEENT Hx HEENT Disorder: No - Renal Hx Renal Disorder: No - Endocrine/Metabolic Hx Endocrine Disorders: Yes Hx Diabetes Mellitus Type 2: Yes - Hematological/Oncological Hx Blood Disorders: No - Integumentary Hx Dermatological Disorder: No - Musculoskeletal/Rheumatological Hx Musculoskeletal Disorders: No - Gastrointestinal Hx Gastrointestinal Disorders: Yes Hx Diverticulitis: Yes - Genitourinary/Gynecological Hx Genitourinary Disorders: No - Psychiatric Hx Psychophysiologic Disorder: Yes Hx Anxiety: Yes Hx Bipolar Disorder: Yes Hx Depression: Yes Hx Substance Use: No - Past Surgical History Past Surgical History: No Previous - Surgical History Hx Cardiac Catheterization: No Hx Coronary Stent: No Hx Gastric Bypass Surgery: No - Anesthesia Hx Anesthesia: No - Suicidal Assessment Feels Threatened In Home Enviroment: No Family/Social History - Physician Review Nursing Documentation Reviewed: Yes Family/Social History: No Known Family HX Smoking Status: Never Smoked Hx Alcohol Use: No Hx Substance Use: No Hx Substance Use Treatment: No Allergies/Home Meds Allergies/Adverse Reactions: Allergies lithium Allergy (Verified 03/15/18 12:24) RASH Home Medications: Home Meds Medication Instructions Recorded Confirmed Olanzapine [Zyprexa] 20 mg PO HS 11/25/12 03/15/18 Topiramate [Topamax] 50 mg PO DAILY 12/09/16 03/15/18 Lisinopril [Zestril] 20 mg PO DAILY 01/17/17 03/15/18 Metformin HCl [Glucophage] 1,000 mg PO BID 01/17/17 03/15/18 traZODone [Desyrel] 50 mg PO DAILY 01/17/17 03/15/18 ALPRAZolam [Xanax] 0 mg PO TID 04/09/17 03/15/18 Review of Systems - Physician Review All systems were reviewed & negative as marked: Yes - Review of Systems Systems not reviewed;Unavailable: Psychotic Neurological: Other (pins and needles to her legs bilaterally) Physical Exam Vital Signs Reviewed: Yes Vital Signs Temp Pulse Resp BP Pulse Ox 03/15/18 07:33 97.9 F 68 18 106/68 99 03/15/18 06:40 71 20 128/76 99 03/15/18 04:01 97.9 F 83 18 120/67 97 Temperature: Afebrile Blood Pressure: Normal Pulse: Regular Respiratory Rate: Normal Appearance: Positive for: Well-Appearing, Non-Toxic, Comfortable Pain Distress: None Mental Status: Positive for: other (Alert and oriented x1) - Systems Exam Head: Present: Atraumatic, Normocephalic Pupils: Present: PERRL Extroacular Muscles: Present: EOMI Conjunctiva: Present: Normal Mouth: Present: Moist Mucous Membranes Neck: Present: Normal Range of Motion Respiratory/Chest: Present: Clear to Auscultation, Good Air Exchange. No: Respiratory Distress, Accessory Muscle Use Cardiovascular: Present: Regular Rate and Rhythm, Normal S1, S2. No: Murmurs Abdomen: No: Tenderness, Distention, Peritoneal Signs Back: Present: Normal Inspection Upper Extremity: Present: Normal Inspection. No: Cyanosis, Edema Lower Extremity: Present: Other (Cellulitis to the knee down bilaterally ). No : Edema Neurological: Present: GCS=15, CN II-XII Intact, Speech Normal Skin: Present: Warm, Dry, Normal Color. No: Rashes Psychiatric: Present: Alert, Other (Oriented x 1). No: Oriented x 3 Medical Decision Making ED Course and Treatment: 03/15/18 04:31 Impression: 67 year old female presents complaining of pins and needles to her legs bilaterally. Patient has not been taking her psych medications for 1 year. Plan: -- VBG -- Labs -- IV Fluids, Vancomycin, Zosyn -- Blood Culture, Urine Culture -- Urinalysis -- Reassess and disposition Prior Visits: Notes and results from previous visits were reviewed. On 03/05/18 patient came in complaining of s/p mechanical fall prior to arrival. Patient was discharged. Progress Notes: 03/15/18 05:[address] Dahl who is covering Dr. Rubio who is aware and agrees with the plan. Accepts patient into his service. Request Dr. Long for psych consult. - Lab Interpretations Microbiology Results: Microbiology Results 03/15/18 04:45 Blood-Venous Blood Culture - Preliminary NO GROWTH AFTER 24 HOURS 03/15/18 04:30 Blood-Venous Blood Culture - Preliminary NO GROWTH AFTER 24 HOURS Lab Results: 03/15/18 04:45 03/15/18 04:45 Lab Results 03/15/18 04:45: Salicylates < 1 L 03/15/18 04:45: Alcohol, Quantitative < 10 03/15/18 04:45: Sodium 148, Chloride 106, Potassium 4.0, Carbon Dioxide 29, Anion Gap 17, BUN 24 H, Creatinine 0.7, Est GFR ( Amer) > 60, Est GFR ( Non-Af Amer) > 60, Random Glucose 133 H, Calcium 9.3, Total Bilirubin 0.5, AST 38 H, ALT 46, Alkaline Phosphatase 89, Total Protein 7.0, Albumin 3.9, Globulin 3.1, Albumin/Globulin Ratio 1.2 03/15/18 04:45: pO2 46, VBG pH 7.35, VBG pCO2 55.0, VBG HCO3 30.4 H, VBG Total CO2 32.1 H, VBG O2 Sat (Calc) 83.0 H, VBG Base Excess 3.4 H, VBG Potassium 3.8, Sodium 145.0, Chloride 109.0 H, Glucose 137 H, Lactate 1.4, FiO2 21.0, Venous Blood Potassium 3.8 03/15/18 04:45: PT 14.0 H, INR 1.22 H 03/15/18 04:45: WBC 6.0, RBC 3.70, Hgb 11.2 L, Hct 33.9 L, MCV 91.6, MCH 30.3, MCHC 33.0, RDW 14.3, Plt Count 231, MPV 11.6 H, Gran % 65.1, Lymph % (Auto) 25.5 , [place] % (Auto) 7.9 H, Eos % (Auto) 1.2 L, Baso % (Auto) 0.3, Gran # 3.88, Lymph # (Auto) 1.5, [place] # (Auto) 0.5, Eos # (Auto) 0.1, Baso # (Auto) 0.02 I have reviewed the lab results: Yes - Medication Orders Current Medication Orders: Acetaminophen (Tylenol 325mg Tab) 650 mg PO Q4H PRN PRN Reason: Pain, Mild (1-3) Last Admin: 03/15/18 12:01 Dose: 650 mg MAR Pain/Vitals Document 03/15/18 12:01 SD (Rec: 03/15/18 12:01 [place] [id number]) Pain Reassessment Is This A Pain ReAssessment? No Presence of Pain Presence of Pain Yes Location Left, Right or Bilateral Bilateral Upper or Lower Lower Description Intermittent Re-Assess: [facility] Pain/Vitals Document 03/15/18 13:01 SD (Rec: 03/15/18 13:11 SD [id number]) Pain Reassessment Is This A Pain ReAssessment? Yes Sleep Is patient sleeping during reassessment? Yes Alprazolam (Xanax) 1 mg PO TID AUGUST PRN Reason: Protocol Last Admin: 03/16/18 09:53 Dose: 1 mg Behavioural Document 03/16/18 09:53 [facility] (Rec: 03/16/18 09:53 [id number]) Maintenance Maintenance Dose Yes Behavior Behavior for Medication: Anxiety Re-Assess: Reassess Psych Meds Document 03/16/18 10:53 [facility] (Rec: 03/16/18 11:11 [facility] [id number]) Reassess Psych Med Effective Sodium Chloride (Sodium Chloride 0.9%) 1,000 mls @ 100 mls/hr IV .Q10H [facility] Last Admin: 03/16/18 01:13 Dose: 100 mls/hr eMAR Start Stop Document 03/16/18 01:13 [facility] (Rec: 03/16/18 01:13 [id number] Intravenous Solution Start Date 03/16/18 Start Time 01:13 End Date 03/16/18 Vancomycin HCl (Vancomycin 1gm) 1 gm in 250 mls @ 167 mls/hr IVPB Q12H AUGUST PRN Reason: Protocol Piperacillin Sod/Tazobactam Sod (Zosyn 3.375 In Ns 100ml) 100 mls @ 200 mls/hr IVPB Q6 AUGUST PRN Reason: Protocol Stop: 03/16/18 18:29 Lisinopril (Zestril) 20 mg PO DAILY [facility] Last Admin: 03/16/18 09:51 Dose: 20 mg MAR Pulse and Blood Pressure Document 03/16/18 09:51 [facility] (Rec: 03/16/18 09:52 [id number] Blood Pressure Blood Pressure (100/60-150/90) 130/62 Lorazepam (Ativan) 2 mg IM Q6H PRN PRN Reason: Agitation Last Admin: 03/16/18 06:12 Dose: 2 mg IM Administration Charges Document 03/16/18 06:12 [facility] (Rec: 03/16/18 06:12 [facility]-[id number]) Injection Site MAR Injection Site Right Arm Charges for Administration # of IM Administrations 1 Re-Assess: Reassess Psych Meds Document 03/16/18 06:42 [facility] (Rec: 03/16/18 08:21 [facility] [id number]) Reassess Psych Med Effective Metformin HCl (Glucophage) 1,000 mg PO BID [facility] Last Admin: 03/16/18 09:52 Dose: 1,000 mg Olanzapine (Zyprexa Zydis) 5 mg PO BID AUGUST PRN Reason: Protocol Last Admin: 03/16/18 09:52 Dose: 5 mg Behavioural Document 03/16/18 09:52 [facility] (Rec: 03/16/18 09:52 [id number]) Maintenance Maintenance Dose Yes Behavior Behavior for Medication: Biting/Hitting/Throwing/ Kicking Re-Assess: Reassess Psych Meds Document 03/16/18 10:52 [facility] (Rec: 03/16/18 11:11 [facility] [id number]) Reassess Psych Med Effective Olanzapine (Zyprexa Zydis) 5 mg PO HS AUGUST PRN Reason: Protocol Last Admin: 03/15/18 22:30 Dose: Not Given Non-Admin Reason: Patient Refused Topiramate (Topamax) 50 mg PO DAILY [facility] PRN Reason: Protocol Last Admin: 03/16/18 09:51 Dose: 50 mg Behavioural Document 03/16/18 09:51 [facility] (Rec: 03/16/18 09:51 [id number]) Maintenance Maintenance Dose Yes Behavior Behavior for Medication: Biting/Hitting/Throwing/ Kicking Re-Assess: Reassess Psych Meds Document 03/16/18 10:51 [facility] (Rec: 03/16/18 11:11 [facility] [id number]) Reassess Psych Med Effective Trazodone HCl (Desyrel) 50 mg PO DAILY [facility] Last Admin: 03/16/18 09:53 Dose: 50 mg Ziprasidone (Geodon Inj) 20 mg IM Q6H PRN; Protocol PRN Reason: severe agitaiton/psychosis Discontinued Medications Sodium Chloride (Sodium Chloride 0.9%) 1,000 mls @ 999 mls/hr IV .Q1H1M STA Stop: 03/15/18 05:32 Last Admin: 03/15/18 05:02 Dose: 999 mls/hr eMAR Start Stop Document 03/15/18 05:02 (Rec: 03/15/18 05:02 [id number]) Intravenous Solution Start Date 03/15/18 Start Time 05:02 Vancomycin HCl (Vancomycin 1gm) 1 gm in 250 mls @ 167 mls/hr IVPB STAT STA PRN Reason: Protocol Stop: 03/15/18 06:01 Last Admin: 03/15/18 05:01 Dose: 167 mls/hr eMAR Start Stop Document 03/15/18 05:01 (Rec: 03/15/18 05:01 [id number]) Intravenous Solution Start Date 03/15/18 Start Time 05:01 Piperacillin Sod/Tazobactam Sod (Zosyn 3.375 In Ns 100ml) 100 mls @ 200 mls/hr IVPB STAT STA PRN Reason: Protocol Stop: 03/15/18 05:01 Last Admin: 03/15/18 04:59 Dose: 200 mls/hr eMAR Start Stop Document 03/15/18 04:59 SH (Rec: 03/15/18 05:00 [id number]) Intravenous Solution Start Date 03/15/18 Start Time 05:00 Sodium Chloride (Sodium Chloride 0.9%) 1,000 mls @ 999 mls/hr IV .Q1H1M [facility] Last Admin: 03/15/18 14:57 Dose: 999 mls/hr eMAR Start Stop Document 03/15/18 14:57 SD (Rec: 03/15/18 14:57 SD [id number]) Intravenous Solution Start Date 03/15/18 Start Time 14:57 End Date 03/15/18 End time 15:57 Total Infusion Time 60 Morphine Sulfate (Morphine) 4 mg IVP STAT STA Stop: 03/15/18 04:46 Last Admin: 03/15/18 05:00 Dose: 4 mg MAR Pain Assessment Document 03/15/18 05:00 (Rec: 03/15/18 05:00 [id number]) Pain Reassessment Is this a pain reassessment? No Sleep Is patient sleeping during reassessment? No Presence of Pain Presence of Pain No Pain Scale Used Pain Scale Used Numeric Location Left, Right or Bilateral Bilateral Upper or Lower Lower IVP Administration Document 03/15/18 05:00 (Rec: 03/15/18 05:00 [id number]) Charges for Administration # of IVP Administrations 1 Non-Formulary Medication (Olanzapine [Zyprexa]) 20 mg PO [facility] Ondansetron HCl (Zofran Inj) 4 mg IVP STAT STA Stop: 03/15/18 04:46 Last Admin: 03/15/18 05:01 Dose: 4 mg IVP Administration Document 03/15/18 05:01 (Rec: 03/15/18 05:01 [id number]) Charges for Administration # of IVP Administrations 1 Pneumococcal Polyvalent Vaccine (Pneumovax 23 Vaccine) 0.5 ml IM .ONCE ONE Stop: 03/15/18 15:19 Last Admin: 03/15/18 15:55 Dose: Immunization Registry Document 03/15/18 15:55 SD (Rec: 03/15/18 15:55 SD [id number]) Immunization Registry Consent Date 03/09/18 - Scribe Statement The provider has reviewed the documentation as recorded by the Michelle Woodard Provider Scribe Attestation: All medical record entries made by the Michelle were at my direction and personally dictated by me. I have reviewed the chart and agree that the record accurately reflects my personal performance of the history, physical exam, medical decision making, and the department course for this patient. I have also personally directed, reviewed, and agree with the discharge instructions and disposition. Disposition/Present on Arrival - Present on Arrival Any Indicators Present on Arrival: No History of DVT/PE: No History of Uncontrolled Diabetes: No Urinary Catheter: No History of Decub. Ulcer: No History Surgical Site Infection Following: None - Disposition Have Diagnosis and Disposition been Completed?: Yes Diagnosis: Cellulitis, Bipolar 1 disorder Disposition: HOSPITALIZED Disposition Time: 03:00 Patient Plan: Admission, Other (Regular Medical Floor) Condition: GOOD
[2018-03-15] MEDS ORDERED: Morphine 4 mg/ml ISec IVP STA (04:45)
[2018-03-15 04:59] LABS: VENOUS BLOOD GAS BASE EXCESS 3.4 mmol/L (0.0-2.0); VENOUS BLOOD GAS PO2 46 mm/Hg (30-55); VENOUS BLOOD PH 7.35 (7.32-7.43)
[2018-03-15 05:13] LABS: ALB/GLOB RATIO 1.2 (1.1-1.8); ALBUMIN 3.9 g/dL (3.0-4.8); ALT/SGPT 46 U/L (7-56); AST/SGOT 38 U/L (14-36); BLOOD UREA NITROGEN 24 mg/dL (7-21); CALCIUM 9.3 mg/dL (8.4-10.5); GFR AFRICAN-AMERICAN > 60; GFR NON-AFRICAN AMERICAN > 60
[2018-03-15 05:21] LABS: INR 1.22 (0.93-1.08)
[2018-03-15 05:45] LABS: HEMOGLOBIN 11.2 g/dL (12.0-16.0); MEAN CELL VOLUME 91.6 fl (80.0-105.0); MEAN CORPUSCULAR HEMOGLOBIN 30.3 pg (25.0-35.0); MEAN PLATELET VOLUME 11.6 fl (7.0-11.0); RBC 3.7 10^6/uL (3.5-6.1); RED CELL DISTRIBUTION WIDTH 14.3 % (11.5-14.5)
[2018-03-15 05:46] LABS: BASO # 0.02 K/mm3 (0.0-2.0); BASO % 0.3 % (0.0-3.0); EOS # 0.1 (0.0-0.7); EOS % 1.2 % (1.5-5.0); GRAN # 3.88 (1.4-6.5); GRAN % 65.1 % (50.0-68.0); LYMPH # 1.5 (1.2-3.4); LYMPH % 25.5 % (22.0-35.0); MONO # 0.5 (0.1-0.6); MONO % 7.9 % (1.0-6.0)
--- NOTE | 2018-03-15 09:21 | HP ---
HISTORY OF PRESENT ILLNESS: Ms. Calzada is a 67-year-old female admitted to the hospital with bilateral lower leg cellulitis. She has history of bipolar disorder, not taking the medications as per her sister who informed the ED physician telephonically; history of hypertension, blood pressure controlled with current medication; diabetes mellitus type 2, no issues. Stable disease. She is complaining of leg pain bilaterally for past few weeks. Received one dose of Zosyn and vancomycin in the ER. No fever, no cough with expectoration. PAST MEDICAL HISTORY: Bipolar disorder, hypertension, diabetes mellitus type 2, history of diverticulitis, anxiety, bipolar disorder. PAST SURGICAL HISTORY: None. FAMILY HISTORY: Noncontributory. PERSONAL HISTORY: Never smoked. No history of alcohol abuse. SOCIAL HISTORY: Lives at home. ALLERGIES: Apex, causes rash. HOME MEDICATIONS: Zyprexa 20 mg p.o. at bedtime, Topamax 50 mg daily, lisinopril 20 mg daily, metformin 1000 mg p.o. b.i.d., Xanax 1 mg p.o. t.i.d., trazodone 50 mg p.o. daily. REVIEW OF SYSTEMS: As per HPI. The 12-point review of systems reviewed, negative. She is hallucinating thinking that she is and about to deliver. PHYSICAL EXAMINATION: GENERAL: Comfortable in bed, in no acute distress. VITAL SIGNS: Temperature 98.7, heart rate is 80 per minute, respiratory rate 15 per minute, blood pressure 120/60, pulse ox is 97% on room air. HEENT: Pallor positive. NECK: No lymphadenopathy. CHEST: Air entry present, equal bilaterally. No added sounds. CARDIOVASCULAR: S1, S2 normal. No murmur, no gallop. SKIN: No petechiae. No rash. EXTREMITIES: Lower extremities bilateral, cellulitis. PSYCHIATRIC: Alert, oriented x3. No focal sensory motor deficit. SPINE: Nontender. LABORATORY DATA: Last white count 6, hemoglobin 11.2, hematocrit 33.9, platelet count 239. Sodium 148, potassium 4, creatinine 0.7. Glucose 133, calcium 9.8, total bilirubin 0.5, alkaline phosphatase 89, total protein 7. Urine tox screen negative. ASSESSMENT AND PLAN: Bilateral lower extremity cellulitis, received one dose of vancomycin dose in the Emergency Room. Infectious Disease consultation, Dr. Downing, requested . We will continue Xanax 1 mg p.o. t.i.d., metformin 1000 mg p.o. b.i.d. for diabetes mellitus, Topamax 50 mg daily, Zyprexa 20 mg p.o. at bedtime, trazodone 50 mg daily, Tylenol 650 every 4 hours p.r.n. for leg pain. Psych consultation, Dr. Long requested. ID consultation, She has mild anemia on the CBC, hemoglobin 11.2. We will send iron studies, B12 and folate levels. Elizabeth Dahl MD MTDGianna
[2018-03-15] MEDS: OLANZapine 5 mg Disintegrating Tab PO SCH ×3 (11:57→22:30)
--- NOTE | 2018-03-15 12:12 | US ---
HISTORY: Leg pain and swelling. Evaluate for DVT PHYSICIAN(S): Dmitriy Deleon MD. TECHNIQUE: Duplex sonography and color-flow Doppler with graded compression were used to evaluate the deep venous systems of both lower extremities. The exam is somewhat limited by edema. FINDINGS: The visualized deep venous systems of both lower extremities are sonographically normal and compressible. Normal wave forms and augmentation are seen. There is no sonographic evidence for deep venous thrombosis in the visualized segments of both lower extremities. IMPRESSION: No sonographic evidence for deep venous thrombosis in the visualized segments of both lower extremities.
[2018-03-15] MEDS ORDERED: Sodium Chloride 0.9% 1,000 ML IV SCH (14:30)
[2018-03-15 15:18] VITALS: BMI 29.5
[2018-03-15] MEDS ORDERED: Pneumococcal 23-Valent Vaccine IM ONE (15:18)
[2018-03-15] MEDS: Sodium Chloride 0.9% 1,000 ML IV SCH (16:02)
[2018-03-15 17:47] LABS: URINE BILIRUBIN NEGATIVE (NEGATIVE); URINE BLOOD NEGATIVE (NEGATIVE); URINE GLUCOSE (UA) NEGATIVE (NEGATIVE); URINE LEUKOCYTE ESTERASE NEGATIVE Leu/uL (NEGATIVE); URINE PROTEIN NEGATIVE mg/dL (<30 mg/dL); URINE UROBILINOGEN 0.2 E.U./dL (<1 E.U./dL)
[2018-03-15 17:49] LABS: URINE APPEARANCE CLEAR (CLEAR); URINE COLOR YELLOW (YELLOW)
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
[2018-03-15] MEDS ORDERED: OLANZAPINE 20 MG PO SCH ×2 (22:00)
[2018-03-16] MEDS: Sodium Chloride 0.9% 1,000 ML IV SCH (01:13)
[2018-03-16 08:49] LABS: HEPATITIS B SURFACE AG Negative (NEGATIVE)
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
[2018-03-16 08:54] LABS: HEPATITIS A IGM NEGATIVE (NEGATIVE); HEPATITIS B CORE AB NEGATIVE (NEGATIVE)
[2018-03-16 09:06] LABS: HEPATITIS C ANTIBODY NEGATIVE (NEGATIVE)
[2018-03-16] MEDS: OLANZapine 5 mg Disintegrating Tab PO SCH ×3 (09:52→21:04)
--- NOTE | 2018-03-16 13:55 | CT ---
Date of service: 03/16/2018 PROCEDURE: CT HEAD WITHOUT CONTRAST. HISTORY: ailtered mental status COMPARISON: 03/05/2018 TECHNIQUE: Axial computed tomography images were obtained through the head/brain without intravenous contrast. Radiation dose: Total exam DLP = 919 mGy-cm. This CT exam was performed using one or more of the following dose reduction techniques: Automated exposure control, adjustment of the mA and/or kV according to patient size, and/or use of iterative reconstruction technique. FINDINGS: HEMORRHAGE: No intracranial hemorrhage. BRAIN: No mass effect or edema. No atrophy or chronic microvascular ischemic changes. VENTRICLES: Unremarkable. No hydrocephalus. CALVARIUM: Unremarkable. PARANASAL SINUSES: Unremarkable as visualized. No significant inflammatory changes. MASTOID AIR CELLS: Unremarkable as visualized. No inflammatory changes. OTHER FINDINGS: None. IMPRESSION: Normal CT of the Head.
--- NOTE | 2018-03-16 14:26 | CP.PCM.PN ---
Subjective - Date & Time of Evaluation Date of Evaluation: 03/16/18 Time of Evaluation: 12:35 - Subjective Subjective: No fevers, not in distress. Objective - Vital Signs/Intake and Output Vital Signs (last 24 hours): Temp Pulse Resp BP Pulse Ox 97.8 F 64 18 130/62 100 03/16/18 06:00 03/16/18 06:00 03/16/18 06:00 03/16/18 09:51 03/16/18 06:00 Intake and Output: 03/16/18 03/16/18 06:59 18:59 Intake Total 180 Output Total 800 Balance -620 - Medications Medications: Current Medications Acetaminophen (Tylenol 325mg Tab) 650 mg PO Q4H PRN PRN Reason: Pain, Mild (1-3) Last Admin: 03/15/18 12:01 Dose: 650 mg Alprazolam (Xanax) 1 mg PO TID AUGUST PRN Reason: Protocol Last Admin: 03/16/18 13:51 Dose: Not Given Sodium Chloride (Sodium Chloride 0.9%) 1,000 mls @ 100 mls/hr IV .Q10H [facility] Last Admin: 03/16/18 01:13 Dose: 100 mls/hr Vancomycin HCl (Vancomycin 1gm) 1 gm in 250 mls @ 167 mls/hr IVPB Q12H AUGUST PRN Reason: Protocol Piperacillin Sod/Tazobactam Sod (Zosyn 3.375 In Ns 100ml) 100 mls @ 200 mls/hr IVPB Q6 AUGUST PRN Reason: Protocol Stop: 03/16/18 18:29 Lisinopril (Zestril) 20 mg PO DAILY [facility] Last Admin: 03/16/18 09:51 Dose: 20 mg Lorazepam (Ativan) 2 mg IM Q6H PRN PRN Reason: Agitation Last Admin: 03/16/18 06:12 Dose: 2 mg Metformin HCl (Glucophage) 1,000 mg PO BID [facility] Last Admin: 03/16/18 09:52 Dose: 1,000 mg Olanzapine (Zyprexa Zydis) 5 mg PO BID AUGUST PRN Reason: Protocol Last Admin: 03/16/18 09:52 Dose: 5 mg Olanzapine (Zyprexa Zydis) 5 mg PO HS AUGUST PRN Reason: Protocol Last Admin: 03/15/18 22:30 Dose: Not Given Topiramate (Topamax) 50 mg PO DAILY AUGUST PRN Reason: Protocol Last Admin: 03/16/18 09:51 Dose: 50 mg Trazodone HCl (Desyrel) 50 mg PO DAILY [facility] Last Admin: 03/16/18 09:53 Dose: 50 mg Ziprasidone (Geodon Inj) 20 mg IM Q6H PRN; Protocol PRN Reason: severe agitaiton/psychosis - Labs Labs: PT 14.0 SECONDS (9.4-12.5) H 03/15/18 04:45 INR 1.22 (0.93-1.08) H 03/15/18 04:45 - Constitutional Appears: Chronically Ill - Head Exam Head Exam: NORMAL INSPECTION - Respiratory Exam Respiratory Exam: Decreased Breath Sounds - Cardiovascular Exam Cardiovascular Exam: +S1, +S2 - GI/Abdominal Exam GI & Abdominal Exam: Soft. absent: Tenderness Assessment and Plan - Assessment and Plan (Free Text) Plan: Assessment bilateral lower extremity edema without evidence of cellulitis, etiology to be determined HTN DM degenerative joint disease bipolar disorder Plan Continue to monitor clinically off antibiotics follow up 2D echo, extremity ultrasound results
[2018-03-16] MEDS: Vancomycin 1gm in NS 250ml 1 GM/250 ML BAG IVPB SCH ×2 (14:36→23:14)
[2018-03-16] MEDS: Piperacillin/Tazobact 3.375 gm 100 ML IVPB SCH ×2 (14:36→17:19)
--- NOTE | 2018-03-16 16:56 | US ---
PROCEDURE: Lower extremity DANISHA exam HISTORY: Peripheral vascular disease with pain and claudication. Previous smoker. Diabetes. PHYSICIAN(S): Dmitriy Deleon MD. FINDINGS: The resting DANISHA's are normal: right, 1.24and left, 1.29. The brachial systolic pressures are symmetric. The high thigh pressures and waveforms are relatively normal. The calf PVR waveforms augment normally. No significant gradients are noted across the thighs. The ankle and metatarsal waveforms are relatively normal and symmetric. No significant pressure gradients are noted across the lower legs. IMPRESSION: 1. Normal DANISHA and PVR examination at rest.
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
--- NOTE | 2018-03-16 18:27 | CARD ---
APPROVED REPORT Date of service: 03/16/2018 EXAM: Two-dimensional and M-mode echocardiogram with Doppler and color Doppler. INDICATION VENTRICULAR DYSFUNCTION /EF % 2D DIMENSIONS Left Atrium (2D)4.1 (1.6-4.0cm)IVSd1.0 (0.7-1.1cm) LVDd3.9 (3.9-5.9cm)PWd1.1 (0.7-1.1cm) LVDs2.7 (2.5-4.0cm)FS (%) 30.6 % LVEF (%)58.8 (>50%) M-Mode DIMENSIONS Aortic Root2.60 (2.2-3.7cm)Aortic Cusp Exc.1.60 (1.5-2.0cm) Aortic Valve AoV Peak Ymywlmss035.0cm/Paige Peak GR.8mmHg Mitral Valve MV E Jabmxfwu81.7cm/sMV A Wcyahgys10.5cm/sE/A ratio0.8 TDI E/Lateral E'0.0E/Medial E'0.0 Tricuspid Valve TR Peak [id number]/sRAP [id number] Peak Gr.22mmHg [id number] LEFT VENTRICLE The left ventricle is normal size. There is normal left ventricular wall thickness. The left ventricular function is normal. The left ventricular ejection fraction is within the normal range. There is normal LV segmental wall motion. Transmitral Doppler flow pattern is Grade I-abnormal relaxation pattern. RIGHT VENTRICLE The right ventricle is normal size. There is normal right ventricular wall thickness. The right ventricular systolic function is normal. ATRIA The left atrium is borderline dilated. The right atrium size is normal. AORTIC VALVE The aortic valve is not well visualized. No aortic regurgitation is present. There is no aortic valvular stenosis. MITRAL VALVE The mitral valve is not well visualized. There is no mitral valve regurgitation noted. There is no mitral valve stenosis. TRICUSPID VALVE The tricuspid valve is normal in structure. There is trace tricuspid regurgitation. PULMONIC VALVE The pulmonary valve is normal in structure. There is trace pulmonic valvular regurgitation. GREAT VESSELS The aortic root is normal in size. The IVC is normal in size and collapses >50% with inspiration. PERICARDIAL EFFUSION There is no pericardial effusion. <Conclusion> The left ventricle is normal size. There is normal left ventricular wall thickness. The left ventricular function is normal. The left ventricular ejection fraction is within the normal range. There is normal LV segmental wall motion. Transmitral Doppler flow pattern is Grade I-abnormal relaxation pattern.
--- NOTE | 2018-03-17 07:53 | PN ---
DATE: 03/16/2018 SUBJECTIVE: The patient is a 67-year-old female, seen and examined, lying in bed, seems to be comfortable; however, she is sleepy, but arousable. As per nursing, she was just given Xanax she was agitated this morning. She does not seem to be in any distress. OBJECTIVE: VITAL SIGNS: She is afebrile, pulse 64, respirations 18, and blood pressure 130/62. HEENT: She has right periorbital bruise and ecchymosis, etiology is unknown. GENERAL: The patient is not a very good historian. LUNGS: Bilateral lungs, good airflow. HEART: S1, S2 audible. ABDOMEN: Soft, nontender. No rebound, no guarding. NEUROLOGIC: She is awake, alert, oriented, and communicative. LABORATORY MARY: WBC is 6, hemoglobin 11.2, hematocrit 33.9, and platelets 231. Chemistry: Blood sugar is 149. Blood cultures are negative. She has leg Doppler done, it is unremarkable, negative for DVT. ASSESSMENT: 1. Bilateral leg cellulitis. 2. Status post fall. 3. History of bipolar disorder. 4. History of [id number] diabetes. 5. Hypertension. 6. Anxiety disorder. PLAN: Currently, the patient is on trazodone 50 mg at bedtime. She was given Geodon. She is on metformin 1000 twice a day. She is getting IV fluids and Topamax. She is on vancomycin 1 g every 12 hours and Zosyn. Echocardiogram has been ordered by Dr. Downing. I will order for CT scan of the brain. We will follow up CBC and CMP intermediate. Curt Rubio MD
[2018-03-17] MEDS: Vancomycin 1gm in NS 250ml 1 GM/250 ML BAG IVPB SCH ×2 (10:04→11:40)
[2018-03-17] MEDS: OLANZapine 5 mg Disintegrating Tab PO SCH ×3 (10:06→23:07)
[2018-03-17] MEDS ORDERED: Sodium Chloride 0.9% 1,000 ML IV SCH (12:19)
--- NOTE | 2018-03-17 14:16 | PN ---
DATE: 03/17/2018 SUBJECTIVE: The patient is a 67 years old, seen and examined. Currently, she is sleepy, but arousable. According to nurse, she was agitated this morning. She was hallucinating. She was given dose of Ativan. Currently, she offers no complaints. PHYSICAL EXAMINATION: VITAL SIGNS: She is afebrile, pulse 77, respirations 18, blood pressure 126/70. LUNGS: Bilateral fair air flow. No rhonchi or crackle. HEART: S1 and S2 audible. ABDOMEN: Soft, nontender. No rebound. No guarding. NEUROLOGIC: She is sleepy, but arousable. She has a right periorbital bruise. LABORATORY DATA: Blood sugar is 190. She had CT scan of the head done that is negative. Bilateral leg cellulitis is improving. ASSESSMENT AND PLAN: 1. Altered mental status versus worsening dementia. 2. History of bipolar disorder. 3. Bilateral cellulitis, improving. 4. Status post fall. 5. Yxv-ddqbzua-eogrjlgnx diabetes. PLAN: I spoke to Dr. Downing, might be able to discontinue vancomycin since she is afebrile and blood cultures and urine cultures are negative. Cut down her fluids. Encourage p.o. intake. I will talk to Dr. Long once her mental status improves. She might be monitored to be transferred to Psych unit to adjust her medications. Curt Rubio MD
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
[2018-03-18 07:20] VITALS: RESP 20
[2018-03-18] MEDS: OLANZapine 5 mg Disintegrating Tab PO SCH ×2 (10:20→21:58)
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
--- NOTE | 2018-03-18 13:50 | PN ---
DATE: 03/18/2018 SUBJECTIVE: The patient is 67 years old, seen and examined, sitting in chair. Seems to be more awake and alert, able to communicate, answer appropriately. As per nurse, she was not agitated this morning. Had her breakfast and lunch. PHYSICAL EXAMINATION: VITAL SIGNS: She is afebrile, pulse 76, respirations 20, blood pressure 125/64. LUNGS: Bilateral good airflow. No rhonchi or crackle. HEART: S1 and S2 audible. ABDOMEN: Soft. Nontender. No rebound. No guarding. NEUROLOGICAL: The patient is awake, alert and is communicative today. Moves all extremities. LABORATORY EXAM: Blood sugar is 199. Urinalysis is clear. Hepatitis profile is negative. Blood culture, urine cultures were negative. ASSESSMENT: 1. Status post altered mental status. 2. History of bipolar disorder. 3. Bilateral leg cellulitis that has improved. PLAN: We will discontinue IV fluids since her oral intake is good. Her vancomycin has been discontinued. The patient is a candidate to be in the Psych Unit to adjust her psych medication. Medically, she is clear. We will monitor her blood sugar closely. If she is transferred to Psych Unit, we will follow up there. Curt Rubio MD
--- NOTE | 2018-03-18 17:18 | PN ---
DATE: 03/18/2018 SUBJECTIVE: The patient is in bed, in no acute distress, nontoxic. PHYSICAL EXAMINATION: VITAL SIGNS: Temperature is 98, blood pressure is 120/70, respiratory rate 16. HEENT: Unremarkable. NECK: Supple. LUNGS: Have decreased breath sounds. HEART: Normal S1, S2. ABDOMEN: Soft, nontender. LABORATORY EXAMINATION: Reveals the patient's white count is 6 and chemistries are noted. Microbiology reveals the blood and urine cultures are negative. Examination of the legs resolved. Review of orders reveals the patient to be off of antibiotics. ASSESSMENT AND PLAN: A 67-year-old female with bilateral lower extremity edema without any evidence of cellulitis, diabetes, hypertension, degenerative joint disease, bipolar disorder, currently off of antibiotics, afebrile. We will follow with you. Mumtaz Downing MD
--- NOTE | 2018-03-19 01:23 | PN ---
DATE: 03/17/2018 SUBJECTIVE: The patient was seen yesterday. No fevers, no chills. No nausea, no vomiting, no chest pain. PHYSICAL EXAMINATION: VITAL SIGNS: Temperature of 98, blood pressure is 112/60, respiratory rate of 18. HEENT: Unremarkable. NECK: Supple. LUNGS: Decreased breath sounds. HEART: Normal S1 and S2. ABDOMEN: Soft, nontender. LABORATORY DATA: Laboratory examination is noted. ASSESSMENT AND PLAN: A 67-year-old female with bilateral lower extremity edema without evidence of cellulitis, diabetes, hypertension, degenerative joint disease, bipolar, yesterday the patient was off of antibiotics. Mumtaz Downing MD
[2018-03-19] MEDS: OLANZapine 5 mg Disintegrating Tab PO SCH ×3 (10:46→22:14)
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
[2018-03-19 12:02] LABS: BASO # 0.01 K/mm3 (0.0-2.0); BASO % 0.1 % (0.0-3.0); EOS # 0.1 (0.0-0.7); EOS % 1.7 % (1.5-5.0); GRAN # 4.17 (1.4-6.5); GRAN % 59.7 % (50.0-68.0); HEMOGLOBIN 13.9 g/dL (12.0-16.0); LYMPH # 2.4 (1.2-3.4); LYMPH % 34.8 % (22.0-35.0); MEAN CELL VOLUME 88.5 fl (80.0-105.0); MEAN CORPUSCULAR HEMOGLOBIN 30.1 pg (25.0-35.0); MONO # 0.3 (0.1-0.6); MONO % 3.7 % (1.0-6.0); RBC 4.62 10^6/uL (3.5-6.1); RED CELL DISTRIBUTION WIDTH 13.8 % (11.5-14.5)
[2018-03-19 12:12] LABS: BLOOD UREA NITROGEN 25 mg/dL (7-21); GFR AFRICAN-AMERICAN > 60; GFR NON-AFRICAN AMERICAN > 60
[2018-03-19 12:13] LABS: ALB/GLOB RATIO 1.2 (1.1-1.8); ALBUMIN 4.3 g/dL (3.0-4.8); ALT/SGPT 40 U/L (7-56); AST/SGOT 34 U/L (14-36); CALCIUM 9.6 mg/dL (8.4-10.5)
--- NOTE | 2018-03-19 12:19 | CP.PCM.PN ---
Subjective - Date & Time of Evaluation Date of Evaluation: 03/19/18 Time of Evaluation: 11:05 - Subjective Subjective: No fevers, not in distress. Objective - Vital Signs/Intake and Output Vital Signs (last 24 hours): Temp Pulse Resp BP Pulse Ox 98.2 F 95 H 20 99/57 L 95 03/19/18 06:00 03/19/18 06:00 03/19/18 06:00 03/19/18 06:00 03/19/18 06:00 Intake and Output: 03/19/18 03/19/18 06:59 18:59 Intake Total 480 Balance 480 - Medications Medications: Current Medications Acetaminophen (Tylenol 325mg Tab) 650 mg PO Q4H PRN PRN Reason: Pain, Mild (1-3) Last Admin: 03/18/18 10:20 Dose: 650 mg Alprazolam (Xanax) 0.5 mg PO TID PRN; Protocol PRN Reason: Anxiety Last Admin: 03/18/18 17:48 Dose: 0.5 mg Lisinopril (Zestril) 20 mg PO DAILY AUGUST Last Admin: 03/18/18 10:19 Dose: 20 mg Lorazepam (Ativan) 2 mg IM Q6H PRN PRN Reason: Agitation Last Admin: 03/18/18 00:06 Dose: 2 mg Metformin HCl (Glucophage) 1,000 mg PO BID AUGUST Last Admin: 03/18/18 17:47 Dose: 1,000 mg Olanzapine (Zyprexa Zydis) 5 mg PO BID AUGUST PRN Reason: Protocol Last Admin: 03/18/18 10:20 Dose: 5 mg Olanzapine (Zyprexa Zydis) 5 mg PO HS AUGUST PRN Reason: Protocol Last Admin: 03/18/18 21:58 Dose: 5 mg Topiramate (Topamax) 50 mg PO DAILY AUGUST PRN Reason: Protocol Last Admin: 03/18/18 10:19 Dose: 50 mg Trazodone HCl (Desyrel) 50 mg PO HS AUGUST Last Admin: 03/18/18 21:57 Dose: 50 mg Ziprasidone (Geodon Inj) 20 mg IM Q6H PRN; Protocol PRN Reason: severe agitaiton/psychosis - Labs Labs: PT 14.0 SECONDS (9.4-12.5) H 03/15/18 04:45 INR 1.22 (0.93-1.08) H 03/15/18 04:45 - Constitutional Appears: Chronically Ill - Head Exam Head Exam: NORMAL INSPECTION - Respiratory Exam Respiratory Exam: Decreased Breath Sounds - Cardiovascular Exam Cardiovascular Exam: +S1, +S2 - GI/Abdominal Exam GI & Abdominal Exam: Soft. absent: Tenderness Assessment and Plan - Assessment and Plan (Free Text) Plan: Assessment bilateral lower extremity edema without evidence of cellulitis HTN DM degenerative joint disease bipolar disorder Plan Continue to monitor clinically off antibiotics
--- NOTE | 2018-03-19 12:33 | RAD ---
Date of service: 03/19/2018 HISTORY: screening for [facility] [facility]: 01/17/2017 FINDINGS: LUNGS: No active pulmonary disease. PLEURA: No significant pleural effusion identified, no pneumothorax apparent. CARDIOVASCULAR: Normal. OSSEOUS STRUCTURES: No significant abnormalities. VISUALIZED UPPER ABDOMEN: Normal. OTHER FINDINGS: None. IMPRESSION: No active disease.
--- NOTE | 2018-03-19 12:53 | PN ---
DATE: 03/19/2018 SUBJECTIVE: The patient is 67 years old, seen much more awake, alert, oriented. Able to converse, although she confabulates a lot and she gets distracted very easily. Denies any nausea or vomiting. Eating and tolerating. PHYSICAL EXAMINATION: VITAL SIGNS: She is afebrile, pulse 95, respirations 20, blood pressure 99/57. HEENT: Right periorbital bruise seemed to be resolving. Nonicteric sclerae. Lagro conjunctivae. NECK: No thyromegaly. No lymphadenopathy. LUNGS: Bilateral fair airflow. No rhonchi or crackle. HEART: S1 and S2 audible. ABDOMEN: Soft. Nontender. No rebound. No guarding. NEUROLOGICAL: She is awake and alert, but somewhat confused at times. LABORATORY EXAM: WBC 7, hemoglobin 13.9, hematocrit 40.7, platelet of 277. Chemistry: Sodium 142, potassium 4.8, chloride 105, CO2 of 22, BUN 25, creatinine 0.8, blood sugar of 222. LFTs are within normal limit. ASSESSMENT: 1. Bilateral leg cellulitis, resolved. 2. Right periorbital ecchymosis that is resolving that was secondary to fall. 3. Bipolar disorder. 4. Deconditioning and difficulty walking. 5. Omh-zaxdyzw-tmqsvypft diabetes. 6. Hypertension. 7. Anxiety disorder. PLAN: The patient is medically stable. Her erythema has resolved. There is no more need of antibiotic. Her request for psychological screening has been sent out to [facility] Awaiting response from them. If she is accepted there, she can be transferred to [facility] today in their Psych Unit to adjust the medication. Curt Rubio MD
[2018-03-20] MEDS: OLANZapine 5 mg Disintegrating Tab PO SCH ×3 (10:30→21:53)
[2018-03-20] MEDS ORDERED: Metoprolol Succinate 25 mg XL Tab PO ONE (15:00)
--- NOTE | 2018-03-20 15:33 | CP.PCM.PN ---
Subjective - Date & Time of Evaluation Date of Evaluation: 03/20/18 Time of Evaluation: 01:25 - Subjective Subjective: No fevers, not in distress, comfortable in bed. Objective - Vital Signs/Intake and Output Vital Signs (last 24 hours): Temp Pulse Resp BP Pulse Ox 98 F 105 H 20 120/54 L 98 03/20/18 06:00 03/20/18 06:00 03/20/18 06:00 03/20/18 06:00 03/20/18 06:00 Intake and Output: 03/20/18 03/20/18 06:59 18:59 Intake Total 360 Balance 360 - Medications Medications: Current Medications Acetaminophen (Tylenol 325mg Tab) 650 mg PO Q4H PRN PRN Reason: Pain, Mild (1-3) Last Admin: 03/18/18 10:20 Dose: 650 mg Alprazolam (Xanax) 0.5 mg PO TID PRN; Protocol PRN Reason: Anxiety Last Admin: 03/18/18 17:48 Dose: 0.5 mg Lisinopril (Zestril) 20 mg PO DAILY [facility] Last Admin: 03/19/18 10:46 Dose: 20 mg Lorazepam (Ativan) 2 mg IM Q6H PRN PRN Reason: Agitation Last Admin: 03/18/18 00:06 Dose: 2 mg Metformin HCl (Glucophage) 1,000 mg PO BID AUGUST Last Admin: 03/19/18 18:41 Dose: 1,000 mg Olanzapine (Zyprexa Zydis) 5 mg PO BID AUGUST PRN Reason: Protocol Last Admin: 03/19/18 18:40 Dose: 5 mg Olanzapine (Zyprexa Zydis) 5 mg PO HS AUGUST PRN Reason: Protocol Last Admin: 03/19/18 22:14 Dose: Not Given Topiramate (Topamax) 50 mg PO DAILY AUGUST PRN Reason: Protocol Last Admin: 03/19/18 10:46 Dose: 50 mg Trazodone HCl (Desyrel) 50 mg PO HS [facility]UG[facility] Last Admin: 03/19/18 22:14 Dose: Not Given Ziprasidone (Geodon Inj) 20 mg IM Q6H PRN; Protocol PRN Reason: severe agitaiton/psychosis - Labs Labs: 03/19/18 11:55 03/19/18 11:55 PT 14.0 SECONDS (9.4-12.5) H 03/15/18 04:45 INR 1.22 (0.93-1.08) H 03/15/18 04:45 - Constitutional Appears: Chronically Ill - Head Exam Head Exam: NORMAL INSPECTION - Respiratory Exam Respiratory Exam: Decreased Breath Sounds - Cardiovascular Exam Cardiovascular Exam: +S1, +S2 - GI/Abdominal Exam GI & Abdominal Exam: Soft. absent: Tenderness Assessment and Plan - Assessment and Plan (Free Text) Plan: Assessment bilateral lower extremity edema without evidence of cellulitis HTN DM degenerative joint disease bipolar disorder Plan Continue to monitor clinically off antibiotics
--- NOTE | 2018-03-20 17:28 | CARD ---
APPROVED REPORT Date of service: 03/20/2018 EKG Measurement Heart [id number] <Conclusion> Sinus tachycardia Left axis deviation Abnormal ECG
--- NOTE | 2018-03-20 17:38 | CARD ---
APPROVED REPORT Date of service: 03/20/2018 EKG Measurement Heart [id number] <Conclusion> Sinus tachycardia Left axis deviation Abnormal ECG
[2018-03-20] MEDS: Metoprolol Succinate 25 mg XL Tab PO SCH (18:00)
--- NOTE | 2018-03-21 05:39 | DS ---
HISTORY OF PRESENT ILLNESS: The patient is a 67-year-old who was admitted with altered mental status. She has a history of bipolar disorder. Patient was given antipsychotic. She is very noncompliant with all her medication. She also had bilateral leg cellulitis and was given IV antibiotics, did well with that. PHYSICAL EXAMINATION: GENERAL: She is awake, alert, confused and paranoid. Does not want to be touched. VITAL SIGNS: She is afebrile. Pulse 115, respirations 20, blood pressure 112/55. LUNGS: Bilateral fair airflow. No rhonchi or crackle. HEART: S1, S2 audible. ABDOMEN: Soft, nontender. No rebound, no guarding. NEUROLOGIC: She is awake and alert, but confused and disoriented. LABORATORY DATA: Blood sugar is 130. Urine tox is negative. Hepatitis profile is negative. ASSESSMENT: 1. Bilateral cellulitis that has improved. 2. Right periorbital contusion secondary to fall a couple of weeks ago. PLAN: She was given Geodon, was resting. She was given order of metoprolol, but patient is paranoid and does not want to take any medication. She was presented to [facility] Psych Unit, but they are awaiting second EKG, but patient does not let anybody touch or have EKG done. Once we give metoprolol, wait for half an hour and repeat the EKG. If her heart rate is below 100, she can be transferred to [facility]. Curt Rubio MD
--- NOTE | 2018-03-21 10:58 | PN ---
DATE: 03/21/2018 SUBJECTIVE: The patient is in bed, in no acute distress, nontoxic. PHYSICAL EXAMINATION VITAL SIGNS: Temperature is 98, blood pressure is 105/60. HEENT: Unremarkable. NECK: Supple. LUNGS: Have decreased breath sounds. HEART: Normal S1 and S2. ABDOMEN: Soft, nontender. LABORATORY DATA: Reveals a white count of 7, hemoglobin of 13. Chemistries are noted and toxicology is noted and HIV is negative. Microbiology reveals blood and urine cultures no growth. Review of orders reveals the patient to be off of antibiotics. ASSESSMENT AND PLAN: A 67-year-old female with bilateral lower extremity edema, no evidence of cellulitis, hypertension, diabetes, degenerative joint disease, bipolar, off of antibiotics, afebrile. The patient is at risk for developing nosocomial infections. Mumtaz Downing MD
[2018-03-21] MEDS: Metoprolol Succinate 25 mg XL Tab PO SCH (11:33)
[2018-03-21] MEDS: OLANZapine 5 mg Disintegrating Tab PO SCH ×3 (11:33→22:00)
[2018-03-21] MEDS ORDERED: Metoprolol Succinate 25 mg XL Tab PO ONE (14:00)
--- NOTE | 2018-03-21 20:23 | CON ---
DATE: 03/21/2018 HISTORY OF PRESENT ILLNESS: The patient is a 67-year-old female with history of schizoaffective disorder, bipolar type, chronic noncompliance with medications. She is currently on the medical floor in [place]. Transfer to [facility] due to acute delusions and paranoia as well as disorganization. I met with the patient at bedside yesterday as well as today and she continues to be quite disorganized, paranoid, guarded and uncooperative with questioning. She has also been receiving medications on the medical floor due to her paranoia. Staff nurse also indicated patient is actively hallucinating and very resistant to engage in any discussion about her care or treatment. Patient thought process is disorganized, accusatory and dismissive during the course of my questioning this morning and again she abruptly end the interview and orders me out of the room despite multiple attempts in trying to gain her trust. Patient continues to be a danger to herself and others and requires hospitalization for stabilization. Vital signs and labs were reviewed. MEDICATIONS: Current psychiatric medications includes Xanax 0.5 mg p.o. t.i.d. p.r.n., Zyprexa 5 mg at bedtime and 5 mg b.i.d., Topamax 50 mg daily, trazodone 50 mg at bedtime. IMPRESSION: Schizoaffective disorder. RECOMMENDATIONS: We will continue with current medication regimen. Patient is due to be transferred to [facility] later today, that is postponed. Psychiatry will of course continue to follow up with the patient and monitor her mental status and try to engage her and obtain her trust. Sharlene Chambers MD
--- NOTE | 2018-03-22 00:22 | PN ---
DATE: 03/21/2018 SUBJECTIVE: Patient is 67 years old, seen and examined. Patient is very paranoid, does not let anybody examine. She did not let me touch her or examine her. Patient was referred to involuntary unit in [facility], but because of her tachycardia, she is not being accepted. I ordered beta-emory, but patient refused to take any medication. Even she does not allow her family member to be near her. She thinks people are poisoning. PHYSICAL EXAMINATION: VITAL SIGNS: She is afebrile, pulse 107, respirations 20, blood pressure 105/61. LUNGS: Bilateral fair airflow. No rhonchi or crackle. HEART: S1, S2 audible. ABDOMEN: Soft, nontender. No rebound, no guarding. NEUROLOGIC: Patient is awake and alert, confused, disoriented, paranoid. ASSESSMENT: 1. Schizophrenia. 2. Bilateral leg cellulitis, improved. 3. History of hypertension. 4. Bipolar disorder. 5. Non-insulin dependant diabetes. 6. Anxiety disorder. PLAN: Patient is very paranoid, need to be in Psych unit. Evaluated by blanking press operator. Patient does not let anybody come near her. She thinks she is being poisoned and she also thinks she is , so we will reach out to [facility] again to get accepted. She needs to be in Psych unit for close monitoring. We will reevaluate patient in a.m. Curt Rubio MD
--- NOTE | 2018-03-22 11:08 | PN ---
DATE: 03/22/2018 SUBJECTIVE: The patient is seen earlier this morning, in no acute distress, nontoxic, comfortable in 563, bed 2. PHYSICAL EXAMINATION: VITAL SIGNS: Temperature is 98, blood pressure is 120/54, respiratory rate of 20, heart rate of 105. HEENT: Examination of HEENT is unremarkable. NECK: Supple. LUNGS: Have decreased breath sounds. HEART: Normal S1, S2. ABDOMEN: Soft, nontender. LABORATORY DATA: Laboratory examination reveals a white count of 7000, hemoglobin of 13, platelets of 277. Chemistries reveals a BUN of 25, creatinine of 0.8. Urinalysis is noted and toxicology is noted. Serology is negative. Microbiology reveals the urine culture is negative and blood cultures are negative. ASSESSMENT AND PLAN: A 67-year-old female with lower extremity edema. No evidence of cellulitis, hypertension, degenerative joint disease, diabetic, currently off of antibiotics. The patient is at risk for developing nosocomial infections. Review of the orders confirms the patient to be off of antibiotics. Mumtaz Downing MD
--- NOTE | 2018-03-22 13:05 | CON ---
DATE: 03/22/2018 HISTORY OF PRESENT ILLNESS: The patient is a 67-year-old female who has a long and proliferative history of schizoaffective disorder, bipolar type; chronic noncompliance to medications and outpatient recommendation, who is currently being optimized on the medical floor for pending transfer to [facility] for involuntary commitment. I have reviewed recent staff notes and met with the patient at bedside on multiple occasions. The patient has always been quite disorganized, paranoid, dispensive, irritable, guarded and uncooperative with questioning. She regards me angrily today and ordered me out of her room before I even able to greet her. She has been difficult with staff members and very resistant to agree with treatment recommendations and in that respect, she has also been refusing her medications. The patient also accuses one of her sisters who visited with her yesterday indicating that her sister is trying to kill her. The patient clearly needs psychiatric treatment and monitoring and since she is definitely not going to sign involuntarily, she requires this element involuntary basis for the purpose of the safety of herself and for others. Her insight and judgment are poor and impulse control is poor as well. Labs and vitals are reviewed and it does not appear that the patient has been permitting vitals and labs to be drawn as there are not any recent ones since 03/20/2018, which is 2 days ago. Relevant psychiatric medications continued to be Xanax 0.5 mg p.o. t.i.d. p.r.n. The patient has not received any doses since 03/18/2018, which was 4 days ago. Zyprexa Zydis three times daily, the patient has been refusing for the last 2 days. This is the third day as she is refusing. Topamax 50 mg daily, again the patient has been refusing the medication on 03/20/2018, 03/21/2018 and 03/22/2018, which is today. Trazodone, the patient refused on 03/19/2018, 03/20/2018, 03/21/2018. Geodon p.r.n., which the patient received one dose on 03/20/2018. IMPRESSION: Schizoaffective disorder. RECOMMENDATIONS: We will continue to recommend current medications as written and try to live up to the patient's trust; however, she is disorganized, paranoid, angry and unpredictable and it is very difficult to engage her trust due to these symptoms. We are waiting for [facility] to transfer the patient. At this time, Psychiatry will continue to follow up with her daily until such transfer occurs. Sharlene Chambers MD
[2018-03-22] MEDS: Metoprolol Succinate 25 mg XL Tab PO SCH (14:31)
[2018-03-22] MEDS: OLANZapine 5 mg Disintegrating Tab PO SCH ×3 (14:32→21:19)
--- NOTE | 2018-03-23 00:16 | DS ---
HISTORY OF PRESENT ILLNESS: The patient is 67 years old, seen and examined, confused, disoriented, less aggressive today. PHYSICAL EXAMINATION: VITAL SIGNS: She is afebrile, pulse 107, respirations 20, blood pressure 105/61. LUNGS: Bilateral fair airflow. No rhonchi or crackle. HEART: S1 and S2 audible. ABDOMEN: Soft. Nontender. No rebound. No guarding. NEUROLOGICAL: She is awake, alert, but confused, disoriented. LABORATORY EXAM: Blood sugar is 114. ASSESSMENT: 1. Bipolar disorder. 2. Status post fall with right periorbital ecchymosis. 3. Bilateral leg cellulitis, improved. 4. Hypertension. 5. Epj-cuswsfz-vnkumfofe diabetes. PLAN: The patient is accepted in [facility]. Once the bed is available, she will be transferred to [facility]. Curt Rubio MD
[2018-03-23] MEDS: Metoprolol Succinate 25 mg XL Tab PO SCH (08:07)
--- NOTE | 2018-03-23 08:23 | CON ---
DATE: 03/20/2018 HISTORY OF PRESENT ILLNESS: Patient is a 67-year-old female with a long debilitating history of schizophrenia and with numerous hospitalizations and chronic noncompliance with medications as well as aftercare recommendations. Patient has been seen by Psychiatry on the medical floor after she was brought to the emergency room because she was not functioning in the community due to paranoia and disorganization. Patient has been bizarre and paranoid with notable delusions and prior notes indicate that she has been aggressive with family members who brought her to the hospital. She was notably paranoid towards Dr. Strickland, and during my visit with her this morning, it was very difficult to engage her and she was despite my reassurances and attempts. Patient reports that she broke ties with her PACT team and she does not want a conversation with any mental health professional out of her room multiple times. She appears unkempt, guarded, paranoid, and unpredictable. She does not appear to be in any acute physical discomfort; however, her insight and judgment are quite poor. According to nursing whom I had spoke with today, patient has been accepted by [facility] for involuntary commitments and is scheduled to be transferred back once the bed becomes available. Vital signs and labs were reviewed by this provider. RELEVANT PSYCHIATRIC MEDICATIONS: Include Xanax 0.5 mg p.o. t.i.d. p.r.n., Zyprexa 5 mg p.o. b.i.d. and at bedtime, Topamax 50 mg daily, trazodone 50 mg p.o. at bedtime, and Geodon as well as Ativan p.r.n. IMPRESSION: Schizoaffective disorder. RECOMMENDATIONS: We will continue with current medications patient's cooperation. However, at this time, she is quite guarded and unpredictable, and readily meets requirements for involuntary commitment with [facility], and she is pending transfer at this time. Psychiatry will continue follow up until a subsequent transfer is accomplished. Sharlene Chambers MD
[2018-03-23] MEDS: OLANZapine 5 mg Disintegrating Tab PO SCH (10:30)
--- NOTE | 2018-03-23 16:21 | CP.PCM.PN ---
Subjective - Date & Time of Evaluation Date of Evaluation: 03/23/18 Time of Evaluation: 14:30 - Subjective Subjective: No fevers, no diarrhea, no vomiting. Objective - Vital Signs/Intake and Output Vital Signs (last 24 hours): Temp Pulse Resp BP Pulse Ox 98.2 F 107 H 20 105/61 97 03/20/18 22:00 03/20/18 22:00 03/20/18 22:00 03/20/18 22:00 03/20/18 22:00 - Medications Medications: Current Medications Acetaminophen (Tylenol 325mg Tab) 650 mg PO Q4H PRN PRN Reason: Pain, Mild (1-3) Last Admin: 03/18/18 10:20 Dose: 650 mg Alprazolam (Xanax) 0.5 mg PO TID PRN; Protocol PRN Reason: Anxiety Last Admin: 03/18/18 17:48 Dose: 0.5 mg Lisinopril (Zestril) 20 mg PO DAILY AUGUST Last Admin: 03/23/18 10:30 Dose: Not Given Lorazepam (Ativan) 2 mg IM Q6H PRN PRN Reason: Agitation Last Admin: 03/23/18 15:27 Dose: 2 mg Metformin HCl (Glucophage) 1,000 mg PO BID AUGUST Last Admin: 03/23/18 10:30 Dose: Not Given Metoprolol Succinate (Toprol Xl) 25 mg PO BRK AUGUST Last Admin: 03/23/18 08:07 Dose: Not Given Olanzapine (Zyprexa Zydis) 5 mg PO BID AUGUST PRN Reason: Protocol Last Admin: 03/23/18 10:30 Dose: Not Given Olanzapine (Zyprexa Zydis) 5 mg PO HS AUGUST PRN Reason: Protocol Last Admin: 03/22/18 21:19 Dose: Not Given Topiramate (Topamax) 50 mg PO DAILY AUGUST PRN Reason: Protocol Last Admin: 03/23/18 10:30 Dose: Not Given Trazodone HCl (Desyrel) 50 mg PO HS AUGUST Last Admin: 03/22/18 21:19 Dose: Not Given Ziprasidone (Geodon Inj) 20 mg IM Q6H PRN; Protocol PRN Reason: severe agitaiton/psychosis Last Admin: 03/23/18 08:25 Dose: 20 mg - Labs Labs: 03/19/18 11:55 03/19/18 11:55 PT 14.0 SECONDS (9.4-12.5) H 03/15/18 04:45 INR 1.22 (0.93-1.08) H 03/15/18 04:45 - Constitutional Appears: Chronically Ill - Respiratory Exam Respiratory Exam: Decreased Breath Sounds - Cardiovascular Exam Cardiovascular Exam: +S1, +S2 - GI/Abdominal Exam GI & Abdominal Exam: Soft. absent: Tenderness Assessment and Plan - Assessment and Plan (Free Text) Plan: Assessment bilateral lower extremity edema without evidence of cellulitis HTN DM degenerative joint disease bipolar disorder Plan Continue to monitor clinically off antibiotics
[2018-03-23 16:29] VITALS: BP 134/76; PULSE 94; TEMP 97.6; O2SAT 98
--- NOTE | 2018-03-23 18:56 | PN ---
DATE: 03/23/2018 SUBJECTIVE: In short, the patient is a 67-year-old female with long and debilitating history of schizoaffective disorder, bipolar type, chronic noncompliance with the medications and followup appointments, history of aggressive and agitated behavior. The patient was followed up today at the morning time. The patient was screened by [facility] and was accepted under involuntary status. The patient is waiting for bed to be available at [facility]. This typewriters functional tester is very familiar with this patient from the previous admissions where the patient was agitated, aggressive and was not taking any medications. Surprisingly, the patient was happy to see this typewriters functional tester, but presented to be disorganized. She was talking randomly about Fernando Mcconnell as well as Brenda Mcconnell, that she is obsessed with killing people. The patient does not make much sense. At the same time, the patient does not have any agitation or aggression so far. VITAL SIGNS: Temperature seems to be stable at 98.2, today pulse is 107, blood pressure 105/61, respiration 20, oxygen saturation is 97. MEDICATIONS: Reviewed. The patient took only Xanax, but she was not taking lisinopril, Ativan, Zyprexa, the patient refused, Toprol, the patient refused, Glucophage, the patient refused, Zyprexa Zydis, the patient refused, Topamax, the patient refused, Geodon last time was given 20 mg on 03/23/2018 at 08:25 a.m. LABORATORY DATA: Reviewed. MENTAL STATUS EXAMINATION: The patient presented to be disorganized, poor personal hygiene, intermittent eye contact. Speech was incoherent, word salad. Thought process seems to be disorganized. Thought content, the patient presented to be bizarre, disorganized, delusional, paranoid. Feelings that Brenda Mcconnell is obsessed with killing people. Insight and judgment seems to be very limited. Impulses are unpredictable. IMPRESSION: As per history, schizoaffective disorder, bipolar type. PLAN: P.r.n. orders are given to the patient. Zyprexa, the patient refused. If the patient is not agitation or aggressive, the patient has rights to refuse at present moment. The patient is waiting for bed to be available at [facility]. We will continue monitoring the patient. Should you have any questions give me a call back. Thank you very much for letting me participate in the care of your patient. Mercedes Strickland MD
--- NOTE | 2018-03-24 08:25 | CP.PCM.PCO ---
Physician Communication Note - Physician Communication Note Physician Communication Note: [place] [facility] [place]
--- NOTE | 2018-03-24 09:01 | DS ---
HISTORY OF PRESENT ILLNESS: The patient is 67 years old female who came in with altered mental status. She had fall at home and had right periorbital contusion. She also has significant past medical history of schizophrenia, bipolar disorder. Psychiatric was involved and she was started on psych medications at home. The patient's family stated she lives by herself and very noncompliant with her medication. Family is here and requesting long-term care. The patient is not in stable mental status to sign herself in to Psych unit in our hospital, so she was evaluated by Psych unit at [facility], awaiting bed. She has been accepted once the bed is available, she will be discharged today. PHYSICAL EXAMINATION: GENERAL: She is confused, disoriented. VITAL SIGNS: She is afebrile. Pulse 105, respirations 20, blood pressure 105/61. LUNGS: Bilateral good airflow. No rhonchi or crackle. HEART: S1 and S2 audible. ABDOMEN: Soft, nontender. No rebound, no guarding. NEUROLOGIC: She is awake, alert, oriented, and communicative. LABORATORY DATA: Blood sugar is 137. ASSESSMENT: 1. Bipolar disorder. 2. Schizophrenia. 3. Hypertension. 4. Aan-wtqjugq-tveitwath diabetes mellitus. 5. Sinus tachycardia, evaluated by public relations coordinator. PLAN: The patient is refusing to take beta-blockers. When she started taking medication, her sinus tachycardia can improve. Given her mental sickness, it is understandable that she is refusing to take medication since she thinks that people are poisoning her. The patient will be discharged today once bed is available. Curt Rubio MD
== END 2018-03-23 17:37 | DRG 885 ==
LOC: ED 03:41 → ERH 05:46 → 5RNO 07:45
PROVIDERS: ADMIT Internal Medicine Medical Oncology; ATTEND Internal Medicine
DX: F25.0 Schizoaffective disorder, bipolar type (principal); L03.116 Cellulitis of left lower limb; L03.115 Cellulitis of right lower limb; K75.9 Inflammatory liver disease, unspecified; E78.5 Hyperlipidemia, unspecified; E11.9 Type 2 diabetes mellitus without complications; D64.9 Anemia, unspecified; F41.9 Anxiety disorder, unspecified; R60.9 Edema, unspecified; I10 Essential (primary) hypertension; M19.90 Unspecified osteoarthritis, unspecified site; N23 Unspecified renal colic; S00.11XA Contusion of right eyelid and periocular area, initial encounter; Z91.81 History of falling; Z79.4 Long term (current) use of insulin; Z79.899 Other long term (current) drug therapy; Z91.14 Patient's other noncompliance with medication regimen; Z91.19 Patient's noncompliance with other medical treatment and regimen; R00.0 Tachycardia, unspecified; Z88.8 Allergy status to other drugs, medicaments and biological substances; R40.2412 Glasgow coma scale score 13-15, at arrival to emergency department; Z87.19 Personal history of other diseases of the digestive system